=== PATIENT | female | born 1975 | race Caucasian/White ===

== ENCOUNTER → 2016-06-07 | Outpatient (REF) | payer OTHER | LOC: M LAB REF 16:43 | PROVIDERS: ATTEND Obstetrics & Gynecology | DX: N92.1 Excessive and frequent menstruation with irregular cycle (principal) ==

== ENCOUNTER 2016-06-18 09:47 | Day surgery (SDC) | payer OTHER ==
[~2016-06-18] VITALS: Ht 175.3 cm; Wt 104.3 kg
[2016-06-18] VITALS (7 sets, daily range): BP systolic 110–117; BP diastolic 59–72
[~2016-06-18 09:47] MED LIST: PROT1TAB2 PO; SUBO8MIS SL; SUCR1TA PO; ZOFR20TA PO
[2016-06-18] MEDS ORDERED: LR 1,000 ML IV SCH ×3 (10:15→16:30)
[2016-06-18] MEDS ORDERED: ACETAMINOPHEN 650 MG SUPP PR ONE ×2 (10:15→12:55)
[2016-06-18 10:17] LABS: MEAN CORPUSCULAR HEMOGLOBIN 29.7 pg (27.0-33.0); MEAN CORPUSCULAR VOLUME 92.8 fl (80.0-96.0); RED CELL DISTRIBUTION WIDTH 12.7 % (11.5-14.5); WHITE BLOOD COUNT 9.2 K/mm3 (4.0-10.0)
[2016-06-18] MEDS ORDERED: MIDAZOLAM INJ 2 MG/2 ML VIAL (J2250) As Ordered ONE (10:18)
[2016-06-18] MEDS ORDERED: fentaNYL 250 MCG/5 ML INJECTION (J3010) As Ordered ONE (10:19)
[2016-06-18] MEDS ORDERED: LIDOCAINE 2% INJ 100 MG/5 ML SDV (FOR ANES.) As Ordered ONE (10:19)
[2016-06-18] MEDS ORDERED: PROPOFOL 200 MG/20 ML VIAL As Ordered ONE (10:20)
[2016-06-18] MEDS ORDERED: ROCURONIUM BROMIDE 50 MG/5 ML VIAL As Ordered ONE (10:21)
[2016-06-18 10:31] LABS: ANION GAP 7 MEQ/L (8-16); BLOOD UREA NITROGEN 8 MG/DL (7-18); CALCIUM LEVEL 9.3 MG/DL (8.5-10.1); CARBON DIOXIDE LEVEL 31 MEQ/L (21-32); CHLORIDE LEVEL 104 MEQ/L (98-107); CREATININE FOR GFR 0.85 MG/DL (0.55-1.02); GLOMERULAR FILTRATION RATE > 60.0 (>58); GLUCOSE, FASTING 101 MG/DL (70-105); POTASSIUM SERUM 4.1 MEQ/L (3.5-5.1); SODIUM LEVEL 142 MEQ/L (136-145)
[2016-06-18 10:33] LABS: CONTROL LINE HCG INT CTR LINE PRESENT
[2016-06-18] MEDS ORDERED: BUPIVACAINE/EPIN 0.25% 30 ML VIAL As Ordered ONE (10:43)
[2016-06-18] MEDS ORDERED: ACETAMINOPHEN 650 MG SUPP As Ordered ONE (10:43)
[2016-06-18] MEDS ORDERED: VASOPRESSIN INJ 20 UNITS/ML VIAL As Ordered ONE (10:44)
[2016-06-18] MEDS ORDERED: HYDROmorphone HCL 2 MG/ML 1ML VIAL (J1170) As Ordered ONE (11:37)
[2016-06-18] MEDS ORDERED: BUPIVACAINE/EPIN 0.25% 30 ML VIAL XX ONE ×2 (12:14→12:55)
[2016-06-18] MEDS ORDERED: FLUORESCEIN 10% (100MG/ML) 5 ML VIAL As Ordered ONE (12:18)
[2016-06-18] MEDS ORDERED: GLYCOPYRROLATE INJ 0.2 MG/ML 2 ML VIAL As Ordered ONE (12:46)
[2016-06-18] MEDS ORDERED: NEOSTIGMINE 1MG/ML 5 ML SYRINGE (J2710) As Ordered ONE (12:53)
[2016-06-18] MEDS ORDERED: PERCOCET 5MG/325MG TAB As Ordered ONE (13:39)
[2016-06-18] MEDS ORDERED: fentaNYL 100 MCG/2 ML INJECTION (J3010) As Ordered ONE (13:39)
[2016-06-18] MEDS: fentaNYL 100 MCG/2 ML INJECTION (J3010) IV PRN ×4 (13:44→14:19)
[2016-06-18] MEDS: PERCOCET 5MG/325MG TAB PO PRN ×4 (13:45→23:51)
[2016-06-18] MEDS: LR 1,000 ML IV SCH ×2 (14:00→21:49)
[2016-06-18] MEDS ORDERED: ONDANSETRON 4MG/2ML VIAL (J2405) IV PRN ×2 (14:00→16:30)
[2016-06-18] MEDS: HYDROmorphone HCL 1 MG/ML SYRINGE (J1170) IV PRN ×2 (14:41→14:56)
[2016-06-18] MEDS ORDERED: PERCOCET 5MG/325MG TAB PO PRN (16:30)
[2016-06-18] MEDS ORDERED: fentaNYL 100 MCG/2 ML INJECTION (J3010) IV PRN (16:30)
[2016-06-18] MEDS ORDERED: HYDROmorphone HCL 1 MG/ML SYRINGE (J1170) IV PRN (16:30)
[2016-06-18] MEDS: SIMETHICONE 80 MG CHEW TAB PO SCH ×2 (17:22→23:50)
[2016-06-18] MEDS: BUPRENORPHINE/NALOXONE 8-2MG SUBLINGUAL TABLET(SUBOXONE) SL SCH (17:23)
[2016-06-18] MEDS: NICOTINE 7 MG/24 HR TRANSDERMAL TD SCH (17:43)
--- NOTE | 2016-06-18 18:10 | RO ---
DATE OF PROCEDURE: 06/18/2016 Astrid is a 40-year-old female with an extensive history of menometrorrhagia, pelvic pain and history of endometriosis. After extensive counseling in the office a decision was made for total laparoscopic hysterectomy, removal of both tubes and possible lysis of adhesions. PREOPERATIVE DIAGNOSES: 1. Menometrorrhagia. 2. Pelvic pain. 3. History of endometriosis. POSTOPERATIVE DIAGNOSES: 1. Menometrorrhagia. 2. Pelvic pain. 3. History of endometriosis. 4. Small fibroid uterus. OPERATIVE PROCEDURE: 1. Total laparoscopic hysterectomy. 2. Bilateral salpingectomy. 3. Cystoscopy. SURGEON: Matthew Flores MD MANAGER SECURITY AND SAFETY: ANESTHESIA: General. surgeon home health assistant Nini Leger ESTIMATED BLOOD LOSS: 100 mL. COMPLICATIONS: None. FINDINGS: Bilateral tubes appeared to be patent on cystoscopy. No evidence of any bladder injury. The uterus appeared to be normal and the ovaries were within normal limits. DESCRIPTION OF PROCEDURE: After obtaining informed consent, the patient was taken to the operating room where general anesthetic was found be adequate. She was then draped and prepped in the usual sterile fashion in dorsal lithotomy position. At this point, a Rivero catheter was placed in the bladder for drainage. We then placed a weighted speculum in the posterior fornix of the vagina. Using a Shields retractor, the anterior lip of the cervix was then grasped with a single-tooth tenaculum. The uterus was sound to approximately 9 cm in size. The cervix was serially dilated. A uterine manipulator was then placed in. After placing of HUMI II uterine manipulator we then turned our attention to the abdomen where 10 mL infraumbilical incision was made. Using the Veress needle, the abdomen was insufflated with CO2 gas to approximately 3.5 liters. We then placed a 10/12 trocar on the left side and a 5 mm trocar on the right side. The patient was placed in Trendelenburg. The pelvis and abdomen was inspected with the above-noted findings. At this point, the fallopian tube was held in tension and using the GASTON Harmonic scalpel the mesosalpinx was transected all the way down to the utero-ovarian ligament. The utero-ovarian ligament was then cauterized and cut. The round ligament was also cauterized and cut in a similar fashion using the GASTON Harmonic scalpel. I then dissect the anterior leaflet of the broad ligament to create a bladder flap. The uterine arteries were skeletonized and the uterine artery was then cauterized and cut using the GASTON Harmonic scalpel. Attention was turned to the opposite side which was done in similar fashion. The anterior leaflet of the broad ligament was also dissected on that side to complete the anterior bladder flap. The uterine artery also coagulated and cut using the GASTON Harmonic scalpel. At this point, we were able to palpate the uterine manipulator cup and an anterior and posterior colpotomy was then performed. The uterus and bilateral fallopian tube was removed through the vagina. A moistened sponge lap was placed in the vagina to keep pneumoperitoneum. At this point, an Endo suture was inserted with a #2-0 V-Loc suture and the vaginal cuff was closed in a running fashion. Peritoneum over the vaginal cuff also closed. The excess suture was cut away and the device was removed. Pelvis copiously irrigated with normal saline and suctioned out. Furacine was given by the anesthesiologist. The bladder was then retrograde filled with 250 mL of normal saline. Rivero catheter removed. A cystoscope was inserted. Bilateral urethral jets were noted. No evidence of any bladder injury noted. At this point the cystoscope was removed. A Rivero catheter was placed back in the bladder and the laparoscopic ports were closed using #0 Vicryl on the fascia and Dermabond on the skin. 0.25% Marcaine was placed for postoperative pain. The patient tolerated the procedure well. She was then transferred to recovery room in stable condition. ENDY
[2016-06-18] MEDS: IBUPROFEN 800 MG TAB PO SCH (20:30)
[2016-06-19 02:00] VITALS: BP 130/63
[2016-06-19] MEDS: IBUPROFEN 800 MG TAB PO SCH ×2 (02:56→08:41)
[2016-06-19] MEDS: PERCOCET 5MG/325MG TAB PO PRN ×2 (03:53→08:42)
[2016-06-19 06:00] VITALS: BP 121/56
[2016-06-19] MEDS: SIMETHICONE 80 MG CHEW TAB PO SCH (06:00)
[2016-06-19] MEDS: NICOTINE 7 MG/24 HR TRANSDERMAL TD SCH (08:43)
[2016-06-19] MEDS: BUPRENORPHINE/NALOXONE 8-2MG SUBLINGUAL TABLET(SUBOXONE) SL SCH (08:43)
[2016-06-19 10:00] VITALS: BP 118/63
[2016-06-19] MEDS ORDERED: IBUP80TA PO (10:28)
[2016-06-22] MEDS ORDERED: ASPI1TAB PO (14:01)
== END 2016-06-19 12:25 | disposition home or self-care (01) ==
LOC: M SDC 09:47 → M MS5PR 15:40 → M SDC 06-19 12:25
PROVIDERS: ATTEND Obstetrics & Gynecology
DX: N92.1 Excessive and frequent menstruation with irregular cycle (principal); R10.2 Pelvic and perineal pain; D25.9 Leiomyoma of uterus, unspecified; R60.0 Localized edema; R29.898 Other symptoms and signs involving the musculoskeletal system; G89.29 Other chronic pain; M25.561 Pain in right knee; M25.562 Pain in left knee; M25.571 Pain in right ankle and joints of right foot; M25.572 Pain in left ankle and joints of left foot; M25.552 Pain in left hip; M79.641 Pain in right hand; M79.642 Pain in left hand; R06.83 Snoring; L40.9 Psoriasis, unspecified; F41.9 Anxiety disorder, unspecified; F32.9 Major depressive disorder, single episode, unspecified; G47.9 Sleep disorder, unspecified; Z79.899 Other long term (current) drug therapy; Z86.14 Personal history of Methicillin resistant Staphylococcus aureus infection; Z87.42 Personal history of other diseases of the female genital tract; Z87.898 Personal history of other specified conditions; Z91.410 Personal history of adult physical and sexual abuse; Z87.891 Personal history of nicotine dependence
CPT/HCPCS: 36415; 58571; 80048; 84703; 85027; 86850; 86900; 86901; 88309; J0690; J1170; J2250; J2710; J3010

== ENCOUNTER → 2016-11-23 | Outpatient (CLI) | payer OTHER ==
[~2016-11-23] MED LIST changes: +ASPI1TAB PO; +IBUP80TA PO
--- NOTE | 2016-11-23 14:35 | REP ---
Left foot four views: There is no fracture or dislocation. Mineralization and joint spaces are normal. There are no calcifications or foreign bodies. There is a small calcaneal Achilles spur. Impression: Small calcaneal Achilles spur. No fracture. Signed by Naif Larry MD 11/23/2016 02:27 P
== END ==
LOC: M LRY 13:41
PROVIDERS: ATTEND Physician Assistant
DX: S99.922A Unspecified injury of left foot, initial encounter (principal); W18.30XA Fall on same level, unspecified, initial encounter; Y92.009 Unspecified place in unspecified non-institutional (private) residence as the place of occurrence of the external cause

== ENCOUNTER → 2016-12-16 | Outpatient (CLI) | payer OTHER ==
--- NOTE | 2016-12-30 10:11 | REP ---
RIGHT KNEE, FIVE VIEWS: HISTORY: Pain. The examination is available for review at 10 a.m. 12/30/2016. There is no acute fracture or dislocation. There is narrowing of the joint spaces. Osteophytes are present on the femur, tibia and patella. A small suprapatellar joint effusion is present. IMPRESSION: Degenerative change as described above. Signed by Rickey Nguyen MD 12/30/2016 10:35 A
== END ==
LOC: M LRY 09:12
PROVIDERS: ATTEND Physician Assistant
DX: M25.561 Pain in right knee (principal); M25.70 Osteophyte, unspecified joint; M25.461 Effusion, right knee

== ENCOUNTER → 2017-06-24 | Outpatient (CLI) | payer OTHER | LOC: M RAD 14:02 | DX: Z80.42 Family history of malignant neoplasm of prostate (principal) | CPT/HCPCS: 77067 ==

== ENCOUNTER → 2017-07-14 | Outpatient (REF) | payer OTHER | LOC: M SFHCLERA 16:07 | DX: E78.2 Mixed hyperlipidemia (principal); R74.8 Abnormal levels of other serum enzymes; R63.5 Abnormal weight gain; Z53.9 Procedure and treatment not carried out, unspecified reason ==

== ENCOUNTER → 2017-11-13 | Outpatient (REF) | payer OTHER | LOC: M SFHCLERA 12:28 | DX: J00 Acute nasopharyngitis [common cold] (principal) ==

== ENCOUNTER → 2017-12-01 | Outpatient (CLI) | payer OTHER | LOC: M ADAMS 08:44 | DX: G89.29 Other chronic pain (principal); M17.0 Bilateral primary osteoarthritis of knee; M51.36 Other intervertebral disc degeneration, lumbar region | CPT/HCPCS: 72110 ==

== ENCOUNTER 2017-12-25 20:45 | Emergency (ER) | payer OTHER ==
[2017-12-25] MEDS: CLINDAMYCIN 150 MG CAP PO (22:57)
== END 2017-12-25 23:06 | disposition home or self-care (01) ==
LOC: M ED 20:45
DX: L03.115 Cellulitis of right lower limb (principal); J43.9 Emphysema, unspecified; K21.9 Gastro-esophageal reflux disease without esophagitis; K57.90 Diverticulosis of intestine, part unspecified, without perforation or abscess without bleeding; N80.9 Endometriosis, unspecified; D68.9 Coagulation defect, unspecified; F41.9 Anxiety disorder, unspecified; F32.9 Major depressive disorder, single episode, unspecified; M32.9 Systemic lupus erythematosus, unspecified; Z72.0 Tobacco use; Z79.82 Long term (current) use of aspirin; Z79.899 Other long term (current) drug therapy; Z88.2 Allergy status to sulfonamides
CPT/HCPCS: 99283

== ENCOUNTER → 2018-03-15 | Outpatient (REF) | payer OTHER ==
[2018-03-15 13:29] LABS: HEMOGLOBIN 11.7 g/dl (12.0-15.5); MEAN CORPUSCULAR HEMOGLOBIN 32.5 pg (27.0-33.0); MEAN CORPUSCULAR HGB CONC 32.5 g/dl (32.0-36.5); PLATELET COUNT, AUTOMATED 189 10^3/uL (150-450); RED CELL DISTRIBUTION WIDTH 12.8 % (11.5-14.5)
[2018-03-15 13:59] LABS: ADD MANUAL DIFFER YES; DIFF SLIDE NUMBER 168; POSITIVE MORPH POS FLAG
[2018-03-15 14:02] LABS: ALBUMIN 3.4 GM/DL (3.2-5.2); ALBUMIN/GLOBULIN RATIO 0.94 (1.00-1.93); ALKALINE PHOSPHATASE 152 U/L (45-117); ALT/SGPT 63 U/L (12-78); ANION GAP 8 MEQ/L (8-16); AST/SGOT 21 U/L (7-37); BILIRUBIN,TOTAL 0.2 MG/DL (0.2-1.0); BLOOD UREA NITROGEN 9 MG/DL (7-18); CALCIUM LEVEL 8.6 MG/DL (8.5-10.1); CARBON DIOXIDE LEVEL 29 MEQ/L (21-32); CHLORIDE LEVEL 101 MEQ/L (98-107); CREATININE FOR GFR 0.79 MG/DL (0.55-1.30); ESTIMATED AVERAGE GLUCOSE 108 MG/DL (60-110); FREE T4 0.91 NG/DL (0.76-1.46); GLOMERULAR FILTRATION RATE > 60.0 (>58); GLUCOSE, FASTING 91 MG/DL (70-100); HEMOGLOBIN A1c 5.4 %; POTASSIUM SERUM 4.3 MEQ/L (3.5-5.1); SODIUM LEVEL 138 MEQ/L (136-145); TOTAL 25(OH) VITAMIN D 23.7 NG/ML (30.0-100.0); VITAMIN B12 LEVEL 649 PG/ML (247-911)
[2018-03-15 14:07] LABS: BANDS 1 % (< 11); EOSINOPHILS 4 % (0-5); LYMPHOCYTES 45 % (16-52); METAMYELOCYTES 3 % (0-0); MONOCYTES 2 % (0-8); MYELOCYTES 2 % (0-0); NEUTROPHILS 43 % (35-75); PLATELET ESTIMATE NORMAL (NORMAL)
== END ==
LOC: M SFHCPLAZ 09:48
DX: R53.83 Other fatigue (principal)

== ENCOUNTER 2018-07-03 01:00 | Emergency (ER) | payer OTHER ==
[~2018-07-03] VITALS: Ht 175.3 cm; Wt 126.4 kg
[~2018-07-03 01:00] MED LIST changes: +CELE1CAP9; +CLEO300C2 PO; +GABA-843; +HUMI40KI2 SC; +METH2.5T48 PO; +TIZA4CAP; -ZOFR20TA PO; +ZOFR4TAB16 PO
[2018-07-03] MEDS ORDERED: BACL1TAB8 PO (01:27)
[2018-07-03] MEDS ORDERED: FOLI1TAB11 PO (01:28)
[2018-07-03] MEDS ORDERED: ACETAMINOPHEN 325 MG TAB PO ONE (01:45)
[2018-07-03] MEDS ORDERED: KETOROLAC 30 MG/ML VIAL (J1885) IV ONE (01:45)
[2018-07-03] MEDS ORDERED: METHOCARBAMOL 1,000 MG/10 ML VIAL (J2800) IV ONE (01:45)
--- NOTE | 2018-07-03 02:20 | REPVR ---
EXAM: CT Lumbar Spine Without Contrast EXAM DATE/TIME: 07/03/2018 1:57 AM CLINICAL HISTORY: 42 years old, female; Injury or trauma; Fall; Initial encounter; Blunt trauma (contusions or hematomas); Additional info: Decr. Hip flexion, recent fall onto low back TECHNIQUE: Axial computed tomography images of the lumbar spine without intravenous contrast. All CT scans at this facility use at least one of these dose optimization techniques: automated exposure control; mA and/or kV adjustment per patient size (includes targeted exams where dose is matched to clinical indication); or iterative reconstruction. Coronal and sagittal reformatted images were created and reviewed. COMPARISON: DX SPINE LS COMPLETE 12/01/2017 8:48 AM FINDINGS: Vertebrae: No acute fracture. Normal alignment. Discs/Spinal canal/Neural foramina: Degenerative interspace narrowing and vacuum phenomenon at L5-S1 with mild anterior and posterior spurring and mild facet arthropathy. No spinal stenosis. There is slight narrowing of the right lateral recess and mild left and moderate right neural foraminal stenosis. Moderate facet arthropathy at L4-L5 with no significant spinal or foraminal stenosis. Soft tissues: Unremarkable. Gallbladder and bile ducts: Status post cholecystectomy. IMPRESSION: 1. Degenerative changes L5-S1 with mild left and moderate right neural foraminal stenosis. There is also some facet arthropathy at L4-L5 with no spinal stenosis 2. Otherwise negative CT lumbar spine. No acute fracture or subluxation. Electronically signed by: Irvin Salas On 07/03/2018 02:19:49 AM
--- NOTE | 2018-07-03 02:52 | REPVR ---
EXAM: US Duplex Right Lower Extremity Veins, Limited EXAM DATE/TIME: 07/03/2018 2:42 AM CLINICAL HISTORY: 42 years old, female; Pain; Leg, upper; Right; Additional info: Sudden onset pain/weakness, antiphospholipid ab syndrome TECHNIQUE: Real-time Duplex ultrasound of the Right Lower Extremity with 2-D casarez scale, color Doppler flow and spectral waveform analysis. Limited exam was focused on the right lower extremity veins. COMPARISON: No relevant prior studies available. FINDINGS: Right deep veins: Unremarkable. The common femoral, femoral, proximal profunda femoral and popliteal veins are patent without thrombus. Normal Doppler waveforms. Normal compressibility and/or augmentation response. Right superficial veins: Unremarkable. Saphenofemoral junction is patent without thrombus. Soft tissues: Unremarkable. IMPRESSION: Negative right lower extremity venous duplex exam without evidence of deep venous thrombosis. Electronically signed by: Irvin Salas On 07/03/2018 02:52:29 AM
[2018-07-03 03:31] VITALS: BP 87/50
--- NOTE | 2018-07-03 08:06 | REP ---
Clinical: Nontraumatic hip pain with decreased range of motion . Technique: Frontal view of the pelvis with neutral and frog lateral views of the right hip. Findings: Osseous structures and joint spaces are intact and normal. Hip joints appear symmetric on frontal pelvic radiograph. No acute fracture dislocation. No evidence for healed injury. No significant degenerative or congenital abnormalities are appreciated. Surrounding soft tissues are unremarkable. Impression: Normal pelvis and right hip series. Electronically Signed by Sonny Kidd MD 07/03/2018 07:58 A
== END 2018-07-03 03:40 | disposition home or self-care (01) ==
LOC: M ED 01:00
DX: T21.15XA Burn of first degree of buttock, initial encounter (principal); T31.0 Burns involving less than 10% of body surface; S39.012A Strain of muscle, fascia and tendon of lower back, initial encounter; S76.011A Strain of muscle, fascia and tendon of right hip, initial encounter; W01.198A Fall on same level from slipping, tripping and stumbling with subsequent striking against other object, initial encounter; X16.XXXA Contact with hot heating appliances, radiators and pipes, initial encounter; Y92.098 Other place in other non-institutional residence as the place of occurrence of the external cause; M32.9 Systemic lupus erythematosus, unspecified; K21.9 Gastro-esophageal reflux disease without esophagitis; D68.61 Antiphospholipid syndrome; F17.200 Nicotine dependence, unspecified, uncomplicated; Z88.2 Allergy status to sulfonamides; Z79.899 Other long term (current) drug therapy; Z79.82 Long term (current) use of aspirin
CPT/HCPCS: 36415; 72131; 73502; 93971; 96374; 96375; 99284; J1885; J2800

== ENCOUNTER → 2018-07-06 | Outpatient (RCR) | payer OTHER ==
[~2018-07-06] MED LIST changes: +BACL1TAB8 PO; +FOLI1TAB11 PO
== END | disposition home or self-care (01) ==
LOC: M PT 12:17
PROVIDERS: ATTEND Nurse Practitioner Family
DX: M54.40 Lumbago with sciatica, unspecified side (principal)

== ENCOUNTER → 2018-07-19 | Outpatient (REF) | payer OTHER ==
[2018-07-19 13:02] LABS: ALBUMIN 3.9 GM/DL (3.2-5.2); ALT/SGPT 36 U/L (12-78); BILIRUBIN,TOTAL 0.2 MG/DL (0.2-1.0); BLOOD UREA NITROGEN 10 MG/DL (7-18); CALCIUM LEVEL 8.9 MG/DL (8.5-10.1); CARBON DIOXIDE LEVEL 27 MEQ/L (21-32); CHLORIDE LEVEL 103 MEQ/L (98-107); CHOLESTEROL LEVEL 195 MG/DL (<200); CHOLESTEROL RISK RATIO 5.131 (<5); CREATININE FOR GFR 0.79 MG/DL (0.55-1.30); GLOMERULAR FILTRATION RATE > 60.0 (>58); GLUCOSE, FASTING 121 MG/DL (70-100); HDL CHOLESTEROL 38 MG/DL (>40); LDL CHOLESTEROL 120 MG/DL (<100); NON-HDL-C 157 MG/DL; POTASSIUM SERUM 4.1 MEQ/L (3.5-5.1); SODIUM LEVEL 138 MEQ/L (136-145); TOTAL PROTEIN 7.8 GM/DL (6.4-8.2); TRIGLYCERIDES LEVEL 186 MG/DL (<150)
== END ==
LOC: M SFHCPLAZ 08:03
PROVIDERS: ATTEND Nurse Practitioner Family
DX: E78.2 Mixed hyperlipidemia (principal)

== ENCOUNTER 2018-08-01 15:15 | Outpatient (RCR) | payer OTHER | END 2018-08-06 | LOC: M PT 15:15 | PROVIDERS: ATTEND Nurse Practitioner Family | DX: M54.40 Lumbago with sciatica, unspecified side (principal) ==

== ENCOUNTER → 2018-10-19 | Outpatient (CLI) | payer MEDICAID ==
[~2018-10-19] MED LIST changes: -ASPI1TAB PO; +ASPI81TA26 PO
== END ==
LOC: M OUTALCOH 07:51
PROVIDERS: ATTEND Psychiatry & Neurology Psychiatry
DX: Z13.9 Encounter for screening, unspecified (principal); F11.20 Opioid dependence, uncomplicated

== ENCOUNTER 2018-11-02 09:00 | Outpatient (RCR) | payer MEDICAID | END 2018-11-05 | LOC: M OUTALCOH 09:00 | PROVIDERS: ATTEND Psychiatry & Neurology Psychiatry | DX: F11.20 Opioid dependence, uncomplicated (principal); F13.20 Sedative, hypnotic or anxiolytic dependence, uncomplicated; F17.200 Nicotine dependence, unspecified, uncomplicated ==

== ENCOUNTER → 2018-11-15 | Outpatient (CLI) | payer OTHER, SELFPAY ==
[2018-11-15 13:01] LABS: ALBUMIN 3.6 GM/DL (3.2-5.2); ALT/SGPT 37 U/L (12-78); BILIRUBIN,TOTAL 0.2 MG/DL (0.2-1.0); BLOOD UREA NITROGEN 8 MG/DL (7-18); CALCIUM LEVEL 9.4 MG/DL (8.5-10.1); CARBON DIOXIDE LEVEL 28 MEQ/L (21-32); CHLORIDE LEVEL 106 MEQ/L (98-107); CHOLESTEROL LEVEL 169 MG/DL (<200); CHOLESTEROL RISK RATIO 3.595 (<5); CREATININE FOR GFR 0.88 MG/DL (0.55-1.30); GLOMERULAR FILTRATION RATE > 60.0 (>58); GLUCOSE, FASTING 108 MG/DL (70-100); HDL CHOLESTEROL 47 MG/DL (>40); LDL CHOLESTEROL 102 MG/DL (<100); NON-HDL-C 122 MG/DL; POTASSIUM SERUM 4.1 MEQ/L (3.5-5.1); SODIUM LEVEL 140 MEQ/L (136-145); TOTAL PROTEIN 7.5 GM/DL (6.4-8.2); TRIGLYCERIDES LEVEL 101 MG/DL (<150)
[2018-11-15 13:18] LABS: HEMOGLOBIN A1c 6.1 %
== END ==
LOC: M LAB 12:09
PROVIDERS: ATTEND Nurse Practitioner Family
DX: R73.01 Impaired fasting glucose (principal); E78.2 Mixed hyperlipidemia

== ENCOUNTER → 2018-12-06 | Outpatient (RCR) | payer MEDICAID, SELFPAY | LOC: M OUTALCOH 11-06 11:21 | PROVIDERS: ATTEND Psychiatry & Neurology Psychiatry | DX: F11.20 Opioid dependence, uncomplicated (principal); F13.20 Sedative, hypnotic or anxiolytic dependence, uncomplicated; F17.200 Nicotine dependence, unspecified, uncomplicated ==

== ENCOUNTER 2018-12-12 11:12 | Outpatient (RCR) | payer SELFPAY | END 2019-01-06 | LOC: M OUTALCOH 11:12 | PROVIDERS: ATTEND Psychiatry & Neurology Psychiatry | DX: F11.20 Opioid dependence, uncomplicated (principal); F13.20 Sedative, hypnotic or anxiolytic dependence, uncomplicated; F17.200 Nicotine dependence, unspecified, uncomplicated ==

== ENCOUNTER → 2019-03-22 | Outpatient (CLI) | payer MEDICAID ==
--- NOTE | 2019-03-22 17:20 | REP ---
Five views right knee: 03/22/2019. Indication: Knee pain following injury. Comparison: 12/01/2017 and 12/16/2016. Findings: There is no acute fracture, subluxation or dislocation. Tricompartmental osteoarthritic sequelae are redemonstrated. No lytic or blastic lesions of the visualized bones are present. Impression: No acute fracture. Electronically Signed by Kg Dutton DO 03/22/2019 05:12 P
== END ==
LOC: M RAD 16:26
PROVIDERS: ATTEND Physician Assistant
DX: S89.91XA Unspecified injury of right lower leg, initial encounter (principal); X58.XXXA Exposure to other specified factors, initial encounter; Y92.9 Unspecified place or not applicable

== ENCOUNTER 2019-03-29 10:44 | Emergency (ER) | payer MEDICAID, OTHER ==
[~2019-03-29] VITALS: Ht 175.3 cm; Wt 117.3 kg
[~2019-03-29 10:44] MED LIST changes: -PRED20TA PO
[2019-03-29 11:17] LABS: BASO % 0.2 % (0.0-1.0); EOS # 0.2 10^3/uL (0.0-0.5); EOS % 2.1 % (0.0-3.0); HEMATOCRIT 43.2 % (36.0-47.0); HEMOGLOBIN 13.7 g/dl (12.0-15.5); LYMPH # 1.6 10^3/uL (1.5-5.0); LYMPH % 15.1 % (24.0-44.0); MEAN CORPUSCULAR HEMOGLOBIN 31.6 pg (27.0-33.0); MEAN CORPUSCULAR HGB CONC 31.7 g/dl (32.0-36.5); MEAN CORPUSCULAR VOLUME 99.8 fl (80.0-96.0); MONO # 0.7 10^3/uL (0.0-0.8); MONO % 6.6 % (0.0-5.0); NEUTROPHILS # 8.1 10^3/uL (1.5-8.5); NEUTROPHILS % 75.5 % (36.0-66.0); PLATELET COUNT, AUTOMATED 218 10^3/uL (150-450); RED BLOOD COUNT 4.33 10^6/uL (4.00-5.40); WHITE BLOOD COUNT 10.8 10^3/uL (4.0-10.0)
--- NOTE | 2019-03-29 11:42 | REP ---
PORTABLE CHEST X-RAY: Single view. HISTORY: Chest pain. FINDINGS: EKG monitoring electrodes overlie the chest. Lungs are well inflated and free of infiltrate. Heart is not enlarged. Pulmonary vasculature is not increased. No significant bony abnormality. IMPRESSION: No active disease. Electronically Signed by Eleuterio Soto MD 03/29/2019 01:12 P
[2019-03-29 11:44] LABS: BLOOD UREA NITROGEN 9 MG/DL (7-18); CALCIUM LEVEL 9.1 MG/DL (8.5-10.1); CARBON DIOXIDE LEVEL 28 MEQ/L (21-32); CHLORIDE LEVEL 105 MEQ/L (98-107); CK-MB VALUE MASS 2.6 NG/ML (<3.6); CPK CREATINE PHOSPHOKINASE 111 U/L (26-192); CREATININE FOR GFR 0.74 MG/DL (0.55-1.30); GLOMERULAR FILTRATION RATE > 60.0 (>58); GLUCOSE, FASTING 106 MG/DL (70-100); MB/CK RELATIVE INDEX 2.34 (< OR =4); POTASSIUM SERUM 4.2 MEQ/L (3.5-5.1); SODIUM LEVEL 138 MEQ/L (136-145); TROPONIN I < 0.02 NG/ML (< 0.10)
[2019-03-29 12:06] LABS: ALBUMIN 3.6 GM/DL (3.2-5.2); ALT/SGPT 30 U/L (12-78); BILIRUBIN,DIRECT < 0.1 MG/DL (0.0-0.2); BILIRUBIN,TOTAL 0.4 MG/DL (0.2-1.0); LIPASE 88 U/L (73-393); TOTAL PROTEIN 7.7 GM/DL (6.4-8.2)
--- NOTE | 2019-03-29 12:19 | REP ---
Duplex extremity venous ultrasound: Right lower extremity History: Pain. Chest pain. Rule out DVT. Findings: The deep veins are anechoic and fully compressible from the groin to the popliteal fossa in the right lower extremity. Color flow imaging is homogeneous. Spectral Doppler interrogation demonstrates intact respiratory variation in flow and normal manual augmentation of flow. There is no evidence of deep vein thrombosis. Impression: Negative right lower extremity duplex venous ultrasound. No evidence of deep vein thrombosis. Electronically Signed by Eleuterio Soto MD 03/29/2019 12:10 P
[2019-03-29] MEDS ORDERED: ISOVUE-370 76% 100ML VIAL (Q9967) As Ordered ONE (12:30)
--- NOTE | 2019-03-29 13:20 | REP ---
CT ANGIOGRAM CHEST: TECHNIQUE: Axial contrast enhanced images from the thoracic inlet to the upper abdomen using 100 mL Isovue 370 intravenous contrast material with multiplanar reformations. There is no CT evidence of pulmonary embolism. There is no thoracic aortic aneurysm or dissection. Heart is not enlarged. There is no mediastinal, hilar, or chest wall lymphadenopathy. There is no pleural or pericardial effusion. Calcified granulomas seen in the right lower lobe. No infiltrate is seen in either lung. There are degenerative changes of the spine. IMPRESSION: No CT evidence of pulmonary embolism or aortic dissection. Calcified granuloma right lower lobe. Electronically Signed by Naif Pedroza MD 03/29/2019 02:17 P
[2019-03-29] MEDS ORDERED: PRED20TA PO (14:05)
[2019-03-29] MEDS ORDERED: dexameTHASONE 20 MG/5 ML VIAL (J1100) IV ONE (14:15)
[2019-03-29 14:30] VITALS: BP 102/51
--- NOTE | 2019-03-30 13:01 | ECGEPIP ---
[facility] - ED Test Date: 2019-03-29 Pat Name: RITA CERVANTES Department: Room: - Gender: Female Securities Underwriter: mary carmen khalil : 1975 Requested By: ANAMIKA Bullock Order Number: [id number] Reading MD: Taylor Toure Measurements Intervals [place] Rate: 79 P: 21 MA: 158 QRS: 9 QRSD: 94 T: 11 QT: 370 QTc: 425 Interpretive Statements SINUS RHYTHM LOW QRS VOLTAGE IN PRECORDIAL LEADS DELAYED R PROGRESSION NO PRIOR Electronically Signed on 03-30-2019 13:01:20 EST by Taylor Toure
== END 2019-03-29 14:39 | disposition home or self-care (01) ==
LOC: M ED 10:44
DX: R07.89 Other chest pain (principal); R06.02 Shortness of breath; J44.9 Chronic obstructive pulmonary disease, unspecified; K21.9 Gastro-esophageal reflux disease without esophagitis; M32.9 Systemic lupus erythematosus, unspecified; F17.200 Nicotine dependence, unspecified, uncomplicated; Z88.2 Allergy status to sulfonamides
CPT/HCPCS: 71045; 71275; 80048; 80076; 82550; 82553; 83690; 85025; 93005; 93041; 93971; 94760; 96374; 99285; J1100; Q9967

== ENCOUNTER → 2019-03-29 | Outpatient (REF) | payer MEDICAID ==
[~2019-03-29] MED LIST changes: +PRED20TA PO
[2019-03-29 12:21] LABS: CRYSTALS, BODY FLUID CA PYROPHOSPHATE (NONE SEEN); SOURCE, BODY FLUID CRYSTALS RT KNEE
[2019-03-29 12:42] LABS: SOURCE, BODY FLUID RT KNEE; SYNOVIAL FLUID COLOR YELLOW (YELLOW)
[2019-03-29 13:40] LABS: MUCIN CLOT TEST 4+ (4+)
[2019-03-29 13:48] LABS: SOURCE, BODY FLUID GLUCOSE RT KNEE; SOURCE, BODY FLUID URIC ACID RT KNEE; URIC ACID, BODY FLUID 3.7 MG/DL (NOT ESTABLISHED)
[2019-03-29 13:53] LABS: BODY FLUID RHEUMATOID SCREEN NEGATIVE (NEGATIVE)
== END ==
LOC: M LAB REF 11:52
PROVIDERS: ATTEND Orthopaedic Surgery Hand Surgery
DX: M25.561 Pain in right knee (principal)

== ENCOUNTER → 2019-05-30 | Outpatient (REF) | payer OTHER ==
[~2019-05-30] MED LIST changes: +PRED20TA PO
[2019-05-30 11:08] LABS: ALBUMIN 3.6 GM/DL (3.2-5.2); ALT/SGPT 31 U/L (12-78); BILIRUBIN,TOTAL 0.2 MG/DL (0.2-1.0); BLOOD UREA NITROGEN 11 MG/DL (7-18); CARBON DIOXIDE LEVEL 29 MEQ/L (21-32); CHLORIDE LEVEL 105 MEQ/L (98-107); CREATININE FOR GFR 0.87 MG/DL (0.55-1.30); GLOMERULAR FILTRATION RATE > 60.0 (>58); GLUCOSE, FASTING 123 MG/DL (70-100); POTASSIUM SERUM 4.2 MEQ/L (3.5-5.1); SODIUM LEVEL 139 MEQ/L (136-145); TOTAL PROTEIN 7.6 GM/DL (6.4-8.2)
== END ==
LOC: M SFHCPLAZ 08:49
PROVIDERS: ATTEND Nurse Practitioner Family
DX: R73.03 Prediabetes (principal); K21.9 Gastro-esophageal reflux disease without esophagitis

== ENCOUNTER → 2019-06-07 | Outpatient (REF) | payer OTHER ==
[2019-06-07 13:10] LABS: HEMOGLOBIN 13.1 g/dl (12.0-15.5); MEAN CORPUSCULAR HEMOGLOBIN 31.1 pg (27.0-33.0); MEAN CORPUSCULAR HGB CONC 30.5 g/dl (32.0-36.5); MEAN CORPUSCULAR VOLUME 102.1 fl (80.0-96.0); PLATELET COUNT, AUTOMATED 270 10^3/uL (150-450); RED BLOOD COUNT 4.21 10^6/uL (4.00-5.40); WHITE BLOOD COUNT 9.2 10^3/uL (4.0-10.0)
[2019-06-07 13:12] LABS: ALBUMIN 4.3 GM/DL (3.2-5.2); ALT/SGPT 34 U/L (12-78); BILIRUBIN,TOTAL 0.3 MG/DL (0.2-1.0); BLOOD UREA NITROGEN 10 MG/DL (7-18); C REACTIVE PROTEIN QUANTITATIV 1.12 MG/DL (0.00-0.30); CALCIUM LEVEL 9.3 MG/DL (8.5-10.1); CARBON DIOXIDE LEVEL 28 MEQ/L (21-32); CHLORIDE LEVEL 103 MEQ/L (98-107); COMPLEMENT C3 157 MG/DL (90-180); COMPLEMENT C4 26 MG/DL (10-40); CREATININE FOR GFR 0.91 MG/DL (0.55-1.30); GLOMERULAR FILTRATION RATE > 60.0 (>58); GLUCOSE, FASTING 96 MG/DL (70-100); POTASSIUM SERUM 3.8 MEQ/L (3.5-5.1); SODIUM LEVEL 137 MEQ/L (136-145); TOTAL PROTEIN 8.5 GM/DL (6.4-8.2)
[2019-06-07 13:51] LABS: APPEARANCE, URINE HAZY (CLEAR); BACTERIA, URINE AUTO 1+ (NEGATIVE); BILIRUBIN, URINE AUTO NEGATIVE (NEGATIVE); BLOOD, URINE BLOOD 1+ (NEGATIVE); COLOR, URINE YELLOW (YELLOW); GLUCOSE, URINE (UA) AUTO NEGATIVE (NEGATIVE); KETONE, URINE AUTO NEGATIVE (NEGATIVE); LEUKOCYTE ESTERASE, URINE AUTO NEGATIVE (NEGATIVE); MUCUS, URINE SMALL (NEGATIVE); NITRITE, URINE AUTO NEGATIVE (NEGATIVE); PROTEIN, URINE AUTO NEGATIVE (NEGATIVE); RBC, URINE AUTO 5 /HPF (0-3); SPECIFIC GRAVITY URINE AUTO 1.015 (1.002-1.035); SQUAMOUS EPITHELIAL CELL UR AU 4 /HPF (0-6); UROBILINOGEN, URINE AUTO 0.2 mg/dL (0.0-2.0); WBC, URINE AUTO 1 /HPF (0-3)
[2019-06-07 13:57] LABS: EOSINOPHILS 6 % (0-3); LYMPHOCYTES 24 % (16-44); MONOCYTES 11 % (0-5); NEUTROPHILS 59 % (28-66); PLATELET ESTIMATE NORMAL (NORMAL)
[2019-06-07 14:14] LABS: ERYTHROCYTE SEDIMENTATION RATE 61 mm/hr (0-20)
[2019-06-08 10:56] LABS: HEPATITIS B SURFACE ANTIGEN NEGATIVE (NEGATIVE)
[2019-06-08 11:24] LABS: HEPATITIS C VIRUS ABY INDEX < 0.0 INDEX (<0.8)
[2019-06-11 14:09] LABS: ANA (HEP2) Negative (.); ANTI DS-DNA AB Negative (Negative); BETA-2 GLYCOPROTEIN I ABY IGA <9 (0-25); BETA-2 GLYCOPROTEIN I ABY IGG <9 (0-20); BETA-2 GLYCOPROTEIN I ABY IGM 147 (0-32); CARDIOLIPIN IGA ANTIBODY <9 APL U/mL (0-11); CARDIOLIPIN IGG ANTIBODY <9 GPL U/mL (0-14); CARDIOLIPIN IGM ANTIBODY 142 MPL U/mL (0-12); HEPATITIS B CORE ANTIBODY IGG Negative (Negative); RNP ANTIBODY < 0.2 AI (0.0-0.9); SMITHS ANTIBODY < 0.2 AI (0.0-0.9); SSA SJOGRENS A <0.2 AI (0.0-0.9); SSB SJOGRENS B <0.2 AI (0.0-0.9)
[2019-06-12 11:29] LABS: DRVV SCREEN 51.4 SEC
[2019-06-12 11:33] LABS: PTT LUPUS TYPE ANTICOAG SCREEN 1.3 (0-1.2)
[2019-06-12 11:42] LABS: DRVV CONFIRM 36.2 SEC
[2019-06-12 11:45] LABS: NORMALIZED RATIO 1.3 (0.00-1.20)
== END ==
LOC: M SFHCRHEU 09:44
PROVIDERS: ATTEND Internal Medicine
DX: R76.0 Raised antibody titer (principal); M32.9 Systemic lupus erythematosus, unspecified; L40.50 Arthropathic psoriasis, unspecified

== ENCOUNTER → 2019-08-09 | Outpatient (CLI) | payer OTHER ==
[2019-08-09 10:27] LABS: HEMATOCRIT 42.4 % (36.0-47.0); HEMOGLOBIN 13.9 g/dl (12.0-15.5); MEAN CORPUSCULAR HEMOGLOBIN 32.4 pg (27.0-33.0); MEAN CORPUSCULAR HGB CONC 32.8 g/dl (32.0-36.5); MEAN CORPUSCULAR VOLUME 98.8 fl (80.0-96.0); PLATELET COUNT, AUTOMATED 254 10^3/uL (150-450); RED BLOOD COUNT 4.29 10^6/uL (4.00-5.40); WHITE BLOOD COUNT 7.9 10^3/uL (4.0-10.0)
[2019-08-09 10:56] LABS: ATYPICAL LYMPH 8 % (0-5); LYMPHOCYTES 24 % (16-44); MONOCYTES 5 % (0-5); NEUTROPHILS 63 % (28-66); PLATELET ESTIMATE NORMAL (NORMAL)
[2019-08-09 11:01] LABS: ERYTHROCYTE SEDIMENTATION RATE 46 mm/hr (0-20)
[2019-08-09 11:08] LABS: ALBUMIN 3.5 GM/DL (3.2-5.2); ALT/SGPT 47 U/L (12-78); BILIRUBIN,TOTAL 0.3 MG/DL (0.2-1.0); BLOOD UREA NITROGEN 9 MG/DL (7-18); C REACTIVE PROTEIN QUANTITATIV 0.64 MG/DL (0.00-0.30); CALCIUM LEVEL 8.4 MG/DL (8.5-10.1); CARBON DIOXIDE LEVEL 25 MEQ/L (21-32); CHLORIDE LEVEL 107 MEQ/L (98-107); CREATININE FOR GFR 0.81 MG/DL (0.55-1.30); GLOMERULAR FILTRATION RATE > 60.0 (>58); GLUCOSE, FASTING 161 MG/DL (70-100); POTASSIUM SERUM 4.3 MEQ/L (3.5-5.1); SODIUM LEVEL 135 MEQ/L (136-145); TOTAL PROTEIN 7.5 GM/DL (6.4-8.2)
--- NOTE | 2019-08-09 16:36 | REPPI ---
AP PELVIS: SINGLE VIEW. HISTORY: Osteoarthritis. Psoriatic arthritis. FINDINGS: AP view of the pelvis shows an intact bony pelvic ring. Sacroiliac joints and symphysis pubis are intact. Hip joint size spaces are preserved. Femoral heads are smooth and rounded. The visualized bowel gas pattern is unremarkable. IMPRESSION: Negative AP view of the pelvis. Electronically Signed by Eleuterio Soto MD 08/09/2019 05:41 P
--- NOTE | 2019-08-09 16:36 | REPPI ---
LUMBAR SPINE SERIES: FIVE VIEWS. HISTORY: Psoriatic arthritis. FINDINGS: Lumbar vertebral body heights are preserved. There is no evidence of spondylolysis. There is degenerative disc narrowing at L4-5. No spondylolisthesis is seen. Degenerative disc narrowing is more pronounced at L5-S1. There is facet narrowing and sclerosis bilaterally at 4-5 and 5-1. Some hypertrophy is noted L4-5 facets bilaterally. Psoas margins are symmetric. Sacrum and SI joints are intact. There are surgical clips in the right upper quadrant consistent prior cholecystectomy. IMPRESSION: Degenerative disc and osteoarthritic facet disease at L5-S1 and L4-5. SI joints are radiographically unremarkable. Electronically Signed by Eleuterio Soto MD 08/09/2019 05:41 P
== END ==
LOC: M PLAIMG 08:19
PROVIDERS: ATTEND Internal Medicine
DX: L40.50 Arthropathic psoriasis, unspecified (principal); M15.0 Primary generalized (osteo)arthritis; M51.37 Other intervertebral disc degeneration, lumbosacral region

== ENCOUNTER → 2019-11-14 | Outpatient (CLI) | payer MEDICAID, OTHER ==
[~2019-11-14] MED LIST changes: +ASPI81TA86 PO; +HUMI40IN2; +INDO50CA91 PO; +LORA-674; +METH2.5T48; +MOTRIN; +ONDA4TAB6; +PROTPAK PO; +SUCR1TAB56
[2019-11-14 07:03] LABS: HEMATOCRIT 39.8 % (36.0-47.0); MEAN CORPUSCULAR HEMOGLOBIN 33.2 pg (27.0-33.0); MEAN CORPUSCULAR HGB CONC 32.7 g/dl (32.0-36.5); MEAN CORPUSCULAR VOLUME 101.5 fl (80.0-96.0); PLATELET COUNT, AUTOMATED 218 10^3/uL (150-450); RED BLOOD COUNT 3.92 10^6/uL (4.00-5.40); WHITE BLOOD COUNT 8.9 10^3/uL (4.0-10.0)
[2019-11-14 07:28] LABS: ALBUMIN 3.2 GM/DL (3.2-5.2); ALT/SGPT 33 U/L (12-78); BILIRUBIN,TOTAL 0.2 MG/DL (0.2-1.0); BLOOD UREA NITROGEN 9 MG/DL (7-18); C REACTIVE PROTEIN QUANTITATIV 0.72 MG/DL (0.00-0.30); CALCIUM LEVEL 8.7 MG/DL (8.5-10.1); CARBON DIOXIDE LEVEL 26 MEQ/L (21-32); CHLORIDE LEVEL 110 MEQ/L (98-107); CREATININE FOR GFR 1.04 MG/DL (0.55-1.30); GLOMERULAR FILTRATION RATE > 60.0 (>58); GLUCOSE, FASTING 142 MG/DL (70-100); SODIUM LEVEL 140 MEQ/L (136-145); TOTAL PROTEIN 7.1 GM/DL (6.4-8.2)
[2019-11-14 08:38] LABS: ERYTHROCYTE SEDIMENTATION RATE 45 mm/hr (0-20)
[2019-11-14 08:46] LABS: ATYPICAL LYMPH 3 % (0-5); EOSINOPHILS 5 % (0-3); LYMPHOCYTES 31 % (16-44); MONOCYTES 6 % (0-5); NEUTROPHILS 55 % (28-66)
[2019-11-14 08:47] LABS: ANISOCYTOSIS 1+; PLATELET ESTIMATE NORMAL (NORMAL)
== END ==
LOC: M LAB 06:30
PROVIDERS: ATTEND Internal Medicine
DX: L40.50 Arthropathic psoriasis, unspecified (principal)

== ENCOUNTER 2019-11-26 17:30 | Emergency (ER) | payer MEDICAID, OTHER ==
[~2019-11-26] VITALS: Ht 175.3 cm; Wt 125.5 kg
[~2019-11-26 17:30] MED LIST changes: -ASPI81TA86 PO; -HUMI40IN2; -INDO50CA91 PO; -LORA-674; -METH2.5T48; -MOTRIN; -ONDA4TAB6; -PROTPAK PO; -SUCR1TAB56
[2019-11-26] MEDS ORDERED: SUCR1TAB56 (17:42)
[2019-11-26] MEDS ORDERED: ONDA4TAB6 (17:42)
[2019-11-26] MEDS ORDERED: MOTRIN (17:42)
[2019-11-26] MEDS ORDERED: HUMI40IN2 (17:42)
[2019-11-26] MEDS ORDERED: METH2.5T48 (17:42)
[2019-11-26] MEDS ORDERED: LORA-674 (17:43)
[2019-11-26] MEDS ORDERED: INDO50CA91 PO (19:04)
[2019-11-26 19:10] VITALS: BP 113/72
--- NOTE | 2019-11-27 08:10 | REP ---
RIGHT KNEE SERIES: Four views. HISTORY: Right knee pain. Comparison right knee radiographs are from March 22, 2019. FINDINGS: There is three compartment osteoarthritis with osteophyte formation most pronounced in the medial compartment. There is some joint space narrowing medially as well. Findings are unchanged radiographically. A small subcortical cyst is seen beneath the tibial spines also unchanged. No fracture or subluxation is seen. On the lateral radiograph, there is evidence of a joint effusion. No sunrise view is included today. IMPRESSION: Evidence of moderate joint effusion. Three compartment osteoarthritis. No acute bony abnormality. Electronically Signed by Eleuterio Soto MD 11/27/2019 08:35 A
== END 2019-11-26 19:14 | disposition home or self-care (01) ==
LOC: M ED 17:30
DX: S83.411A Sprain of medial collateral ligament of right knee, initial encounter (principal); M25.461 Effusion, right knee; X50.9XXA Other and unspecified overexertion or strenuous movements or postures, initial encounter; Y92.9 Unspecified place or not applicable; Y93.9 Activity, unspecified; Y99.9 Unspecified external cause status; F17.200 Nicotine dependence, unspecified, uncomplicated; Z79.899 Other long term (current) drug therapy; Z88.1 Allergy status to other antibiotic agents

== ENCOUNTER → 2019-12-11 | Outpatient (REF) | payer OTHER ==
[~2019-12-11] MED LIST changes: +ASPI81TA86 PO; +HUMI40IN2; +INDO50CA91 PO; +LORA-674; +METH2.5T48; +MOTRIN; +ONDA4TAB6; +PROTPAK PO; +SUCR1TAB56
[2020-01-23 11:48] LABS: FREE T4 0.85 NG/DL (0.76-1.46); THYROID STIMULATING HORMONE 0.958 uIU/ML (0.358-3.740)
== END ==
LOC: M LABSMT 07:40
PROVIDERS: ATTEND Internal Medicine Gastroenterology
DX: R19.7 Diarrhea, unspecified (principal)

== ENCOUNTER → 2019-12-11 | Outpatient (REF) | payer OTHER ==
[2020-01-23 11:53] LABS: HEMOGLOBIN A1c 5.9 %
[2020-01-23 11:54] LABS: ALBUMIN 3.4 GM/DL (3.2-5.2); ALT/SGPT 33 U/L (12-78); BILIRUBIN,TOTAL 0.2 MG/DL (0.2-1.0); BLOOD UREA NITROGEN 6 MG/DL (7-18); CALCIUM LEVEL 8.9 MG/DL (8.5-10.1); CARBON DIOXIDE LEVEL 29 MEQ/L (21-32); CHLORIDE LEVEL 106 MEQ/L (98-107); CHOLESTEROL LEVEL 181 MG/DL (<200); CHOLESTEROL RISK RATIO 5.323 (<5); CREATININE FOR GFR 0.93 MG/DL (0.55-1.30); GLOMERULAR FILTRATION RATE > 60.0 (>58); GLUCOSE, FASTING 146 MG/DL (70-100); HDL CHOLESTEROL 34 MG/DL (>40); LDL CHOLESTEROL 108 MG/DL (<100); NON-HDL-C 147 MG/DL; POTASSIUM SERUM 4.2 MEQ/L (3.5-5.1); SODIUM LEVEL 137 MEQ/L (136-145); TOTAL PROTEIN 7.3 GM/DL (6.4-8.2); TRIGLYCERIDES LEVEL 195 MG/DL (<150)
== END ==
LOC: M SFHCPLAZ 07:38
PROVIDERS: ATTEND Nurse Practitioner Family
DX: R73.03 Prediabetes (principal); E78.2 Mixed hyperlipidemia

== ENCOUNTER → 2020-02-04 | Outpatient (CLI) | payer OTHER ==
[2020-02-04 17:28] LABS: HEMATOCRIT 40.6 % (36.0-47.0); HEMOGLOBIN 13.3 g/dl (12.0-15.5); MEAN CORPUSCULAR HEMOGLOBIN 33.3 pg (27.0-33.0); MEAN CORPUSCULAR HGB CONC 32.8 g/dl (32.0-36.5); MEAN CORPUSCULAR VOLUME 101.5 fl (80.0-96.0); PLATELET COUNT, AUTOMATED 182 10^3/uL (150-450); WHITE BLOOD COUNT 8.8 10^3/uL (4.0-10.0)
[2020-02-04 17:54] LABS: ALBUMIN 3.5 GM/DL (3.2-5.2); ALT/SGPT 157 U/L (12-78); BILIRUBIN,TOTAL 0.2 MG/DL (0.2-1.0); BLOOD UREA NITROGEN 9 MG/DL (7-18); C REACTIVE PROTEIN QUANTITATIV 1.43 MG/DL (0.00-0.30); CALCIUM LEVEL 9.3 MG/DL (8.5-10.1); CARBON DIOXIDE LEVEL 28 MEQ/L (21-32); CHLORIDE LEVEL 105 MEQ/L (98-107); CREATININE FOR GFR 0.93 MG/DL (0.55-1.30); GLOMERULAR FILTRATION RATE > 60.0 (>58); GLUCOSE, FASTING 100 MG/DL (70-100); POTASSIUM SERUM 3.8 MEQ/L (3.5-5.1); SODIUM LEVEL 139 MEQ/L (136-145); TOTAL PROTEIN 7.6 GM/DL (6.4-8.2)
[2020-02-04 18:12] LABS: ERYTHROCYTE SEDIMENTATION RATE 48 mm/hr (0-20)
[2020-02-04 18:44] LABS: EOSINOPHILS 7 % (0-3); LYMPHOCYTES 35 % (16-44); MONOCYTES 4 % (0-5); NEUTROPHILS 54 % (28-66)
[2020-02-04 18:46] LABS: PLATELET ESTIMATE NORMAL (NORMAL)
== END ==
LOC: M LAB 15:52
PROVIDERS: ATTEND Internal Medicine
DX: L40.50 Arthropathic psoriasis, unspecified (principal)

== ENCOUNTER → 2020-02-13 | Outpatient (REF) | payer OTHER ==
[2020-02-25 23:07] LABS: CALPROTECTIN STOOL 57 ug/g (0-120); PANCREATIC ELASTASE STOOL >500 (>200)
== END ==
LOC: M LAB REF 12:24
PROVIDERS: ATTEND Internal Medicine Gastroenterology
DX: R19.7 Diarrhea, unspecified (principal)

== ENCOUNTER → 2020-02-14 | Outpatient (CLI) | payer OTHER | LOC: M LABSMTC 11:45 | PROVIDERS: ATTEND Anesthesiology | DX: Z01.812 Encounter for preprocedural laboratory examination (principal); Z20.828 Contact with and (suspected) exposure to other viral communicable diseases | CPT/HCPCS: C9803; U0003 ==

== ENCOUNTER 2020-02-19 09:37 | Day surgery (SDC) | payer OTHER ==
[~2020-02-19] VITALS: Ht 175.3 cm; Wt 117.5 kg
[~2020-02-19 09:37] MED LIST changes: -ASPI81TA86 PO; +NS 1,000 ML IV ONE; -PROTPAK PO
[2020-02-19] MEDS ORDERED: ASPI81TA86 PO (10:26)
[2020-02-19] MEDS ORDERED: PROTPAK PO (10:27)
[2020-02-19] MEDS ORDERED: LIDOCAINE 2% 100MG/5ML SDV (FOR ANES.) As Ordered ONE ×2 (11:00→12:07)
[2020-02-19] MEDS ORDERED: propofoL 200 MG/20 ML VIAL As Ordered ONE ×2 (11:00→11:45)
[2020-02-19] MEDS ORDERED: fentaNYL 100 MCG/2 ML INJECTION (J3010) As Ordered ONE (11:02)
--- NOTE | 2020-02-19 11:41 | ROOR ---
Patient Name: Astrid Chester Procedure Date: 02/19/2020 11:34 AM Date of : 1975 Age: 44 Room: [facility] Gender: Female Note Status: Finalized Procedure: Upper GI endoscopy Indications: Heartburn, Endoscopy to assess diarrhea in patient suspected of having disease of the small-bowel Providers: Beny CHAND MD Referring MD: Kandi Pierce NP Requesting Provider: Medicines: Monitored Anesthesia Care Complications: No immediate complications. Procedure: Pre-Anesthesia Assessment: - The heart rate, respiratory rate, oxygen saturations, blood pressure, adequacy of pulmonary ventilation, and response to care were monitored throughout the procedure. The Endoscope was introduced through the mouth, and advanced to the second part of duodenum. The upper GI endoscopy was accomplished without difficulty. The patient tolerated the procedure well. Findings: The esophagus was normal. The stomach was normal. The examined duodenum was normal. Biopsies for histology were taken with a cold forceps in the second portion of the duodenum and in the third portion of the duodenum for evaluation of celiac disease. Impression: - Normal esophagus. - Normal stomach. - Normal examined duodenum. - Biopsies were taken with a cold forceps for evaluation of celiac disease. Recommendation: - Telephone endoscopist for pathology results in 2 weeks. Beny Chand MD Beny CHAND MD 02/19/2020 11:41:12 AM Electronically signed by Beny CHAND MD Number of Addenda: 0 Note Initiated On: 02/19/2020 11:34 AM Estimated Blood Loss: Estimated blood loss: none.
--- NOTE | 2020-02-19 12:02 | ROOR ---
Patient Name: Astrid Chester Procedure Date: 02/19/2020 11:34 AM Date of : 1975 Age: 44 Room: [facility] Gender: Female Note Status: Finalized Procedure: Colonoscopy Indications: Clinically significant diarrhea of unexplained origin Providers: Beny CHAND MD Referring MD: Kandi Pierce NP Requesting Provider: Medicines: Monitored Anesthesia Care Complications: No immediate complications. Procedure: Pre-Anesthesia Assessment: - The heart rate, respiratory rate, oxygen saturations, blood pressure, adequacy of pulmonary ventilation, and response to care were monitored throughout the procedure. The Colonoscope was introduced through the anus and advanced to 10 cm into the ileum. The colonoscopy was performed without difficulty. The patient tolerated the procedure well. The quality of the bowel preparation was fair. Findings: The perianal and digital rectal examinations were normal. Two sessile polyps were found in the hepatic flexure and ascending colon. The polyps were small in size. These polyps were removed with a cold snare. Resection and retrieval were complete. Small Internal Hemorrhoids. The exam was otherwise without abnormality on direct and retroflexion views. Biopsies for histology were taken with a cold forceps from the entire colon for evaluation of microscopic colitis. Impression: - Preparation of the colon was fair. - Two small polyps at the hepatic flexure and in the ascending colon, removed with a cold snare. Resected and retrieved. - Small Internal Hemorrhoids. - The colon mucosa is slightly erythematous in the sigmoid, but the colon is otherwise normal on direct and retroflexion views. - Biopsies were taken with a cold forceps from the entire colon for evaluation of microscopic colitis. Recommendation: - Telephone endoscopist for pathology results in 2 weeks. Beny Chand MD Beny CHAND MD 02/19/2020 12:01:46 PM Electronically signed by Beny CHAND MD Number of Addenda: 0 Note Initiated On: 02/19/2020 11:34 AM Estimated Blood Loss: Estimated blood loss: none.
[2020-02-19 12:30] VITALS: BP 106/61
[2020-02-19] MEDS ORDERED: ePHEDrine SULFATE 25 MG/5 ML(5MG/ML) SYRINGE As Ordered ONE (12:52)
== END 2020-02-19 12:36 | disposition home or self-care (01) ==
LOC: M OPP 09:37
PROVIDERS: ATTEND Internal Medicine Gastroenterology
DX: D12.2 Benign neoplasm of ascending colon (principal); R19.7 Diarrhea, unspecified; R12 Heartburn; F17.210 Nicotine dependence, cigarettes, uncomplicated; Z79.899 Other long term (current) drug therapy; Z88.2 Allergy status to sulfonamides
CPT/HCPCS: 43239; 45380; 45385; 88305; J3010

== ENCOUNTER → 2020-04-15 | Outpatient (CLI) | payer SELFPAY ==
[~2020-04-15] MED LIST changes: +ASPI81TA86 PO; -NS 1,000 ML IV ONE; +PROTPAK PO
== END ==
LOC: M LABSMTC 08:48
PROVIDERS: ATTEND Pediatrics
DX: Z11.59 Encounter for screening for other viral diseases (principal)

== ENCOUNTER → 2020-05-06 | Outpatient (REF) | payer OTHER ==
[2020-05-06 17:18] LABS: HEMATOCRIT 43.1 % (36.0-47.0); MEAN CORPUSCULAR HGB CONC 32.5 g/dl (32.0-36.5); MEAN CORPUSCULAR VOLUME 101.7 fl (80.0-96.0); PLATELET COUNT, AUTOMATED 221 10^3/uL (150-450); RED BLOOD COUNT 4.24 10^6/uL (4.00-5.40); WHITE BLOOD COUNT 10.7 10^3/uL (4.0-10.0)
[2020-05-06 17:22] LABS: HEMOGLOBIN A1c 5.7 %
[2020-05-06 17:26] LABS: ALBUMIN 3.6 GM/DL (3.2-5.2); ALT/SGPT 50 U/L (12-78); BILIRUBIN,TOTAL 0.3 MG/DL (0.2-1.0); BLOOD UREA NITROGEN 11 MG/DL (7-18); C REACTIVE PROTEIN QUANTITATIV 1.37 MG/DL (0.00-0.30); CALCIUM LEVEL 8.9 MG/DL (8.5-10.1); CARBON DIOXIDE LEVEL 30 MEQ/L (21-32); CHLORIDE LEVEL 103 MEQ/L (98-107); CREATININE FOR GFR 0.95 MG/DL (0.55-1.30); GLOMERULAR FILTRATION RATE > 60.0 (>58); GLUCOSE, FASTING 127 MG/DL (70-100); POTASSIUM SERUM 4.2 MEQ/L (3.5-5.1); SODIUM LEVEL 136 MEQ/L (136-145); TOTAL PROTEIN 7.6 GM/DL (6.4-8.2)
[2020-05-06 17:40] LABS: ANISOCYTOSIS 1+; ATYPICAL LYMPH 6 % (0-5); EOSINOPHILS 6 % (0-3); LYMPHOCYTES 25 % (16-44); MONOCYTES 3 % (0-5); MYELOCYTES 1 % (0-0); NEUTROPHILS 57 % (28-66)
[2020-05-06 17:41] LABS: MICROCYTOSIS 2+; PLATELET ESTIMATE NORMAL (NORMAL)
[2020-05-06 17:42] LABS: ERYTHROCYTE SEDIMENTATION RATE 29 mm/hr (0-20)
== END ==
LOC: M PLALAB 15:25
PROVIDERS: ATTEND Internal Medicine
DX: L40.50 Arthropathic psoriasis, unspecified (principal); R73.03 Prediabetes

== ENCOUNTER → 2020-07-09 | Outpatient (CLI) | payer OTHER ==
[~2020-07-09] MED LIST changes: +GABA-282; -GABA-843
[2020-07-09 18:03] LABS: HEMATOCRIT 40.1 % (36.0-47.0); HEMOGLOBIN 12.8 g/dl (12.0-15.5); MEAN CORPUSCULAR HEMOGLOBIN 31.9 pg (27.0-33.0); MEAN CORPUSCULAR HGB CONC 31.9 g/dl (32.0-36.5); PLATELET COUNT, AUTOMATED 213 10^3/uL (150-450); RED BLOOD COUNT 4.01 10^6/uL (4.00-5.40)
[2020-07-09 18:26] LABS: ALBUMIN 3.6 GM/DL (3.2-5.2); ALT/SGPT 53 U/L (12-78); BILIRUBIN,TOTAL 0.4 MG/DL (0.2-1.0); BLOOD UREA NITROGEN 9 MG/DL (7-18); C REACTIVE PROTEIN QUANTITATIV 1.19 MG/DL (0.00-0.30); CALCIUM LEVEL 9.3 MG/DL (8.5-10.1); CARBON DIOXIDE LEVEL 30 MEQ/L (21-32); CHLORIDE LEVEL 104 MEQ/L (98-107); CREATININE FOR GFR 0.81 MG/DL (0.55-1.30); GLOMERULAR FILTRATION RATE > 60.0 (>58); GLUCOSE, FASTING 83 MG/DL (70-100); POTASSIUM SERUM 3.9 MEQ/L (3.5-5.1); SODIUM LEVEL 136 MEQ/L (136-145); TOTAL PROTEIN 7.6 GM/DL (6.4-8.2)
[2020-07-09 18:29] LABS: ATYPICAL LYMPH 10 % (0-5); LYMPHOCYTES 22 % (16-44); MONOCYTES 2 % (0-5); NEUTROPHILS 65 % (28-66); PLATELET ESTIMATE NORMAL (NORMAL)
[2020-07-09 18:33] LABS: ERYTHROCYTE SEDIMENTATION RATE 46 mm/hr (0-20)
== END ==
LOC: M LAB 16:56
PROVIDERS: ATTEND Internal Medicine
DX: L40.50 Arthropathic psoriasis, unspecified (principal)

== ENCOUNTER → 2020-07-10 | Outpatient (REF) | payer OTHER ==
[2020-07-10 17:59] LABS: HEPATITIS B SURFACE ANTIGEN NEGATIVE (NEGATIVE); HEPATITIS C VIRUS ABY INDEX < 0.0 INDEX (<0.8)
== END ==
LOC: M SFHCRHEU 11:45
PROVIDERS: ATTEND Internal Medicine
DX: L40.50 Arthropathic psoriasis, unspecified (principal)

== ENCOUNTER → 2020-09-19 | Outpatient (CLI) | payer OTHER ==
[2020-09-19 10:25] LABS: HEMATOCRIT 43.2 % (36.0-47.0); HEMOGLOBIN 13.8 g/dl (12.0-15.5); MEAN CORPUSCULAR HEMOGLOBIN 33.5 pg (27.0-33.0); MEAN CORPUSCULAR HGB CONC 31.9 g/dl (32.0-36.5); MEAN CORPUSCULAR VOLUME 104.9 fl (80.0-96.0); PLATELET COUNT, AUTOMATED 219 10^3/uL (150-450); RED BLOOD COUNT 4.12 10^6/uL (4.00-5.40); WHITE BLOOD COUNT 8.6 10^3/uL (4.0-10.0)
[2020-09-19 11:05] LABS: ALBUMIN 3.5 GM/DL (3.2-5.2); ALT/SGPT 166 U/L (12-78); BILIRUBIN,TOTAL 0.3 MG/DL (0.2-1.0); BLOOD UREA NITROGEN 11 MG/DL (7-18); C REACTIVE PROTEIN QUANTITATIV 0.81 MG/DL (0.00-0.30); CALCIUM LEVEL 9.4 MG/DL (8.5-10.1); CARBON DIOXIDE LEVEL 32 MEQ/L (21-32); CHLORIDE LEVEL 106 MEQ/L (98-107); CREATININE FOR GFR 0.76 MG/DL (0.55-1.30); ERYTHROCYTE SEDIMENTATION RATE 33 mm/hr (0-20); GLOMERULAR FILTRATION RATE > 60.0 (>58); GLUCOSE, FASTING 80 MG/DL (70-100); POTASSIUM SERUM 4.6 MEQ/L (3.5-5.1); SODIUM LEVEL 139 MEQ/L (136-145); TOTAL PROTEIN 7.4 GM/DL (6.4-8.2)
[2020-09-19 11:14] LABS: ATYPICAL LYMPH 3 % (0-5); EOSINOPHILS 2 % (0-3); LYMPHOCYTES 25 % (16-44); MONOCYTES 4 % (0-5); NEUTROPHILS 66 % (28-66)
[2020-09-19 11:15] LABS: PLATELET ESTIMATE NORMAL (NORMAL)
== END ==
LOC: M LAB 08:31
PROVIDERS: ATTEND Internal Medicine
DX: L40.50 Arthropathic psoriasis, unspecified (principal)

== ENCOUNTER → 2020-10-13 | Outpatient (CLI) | payer OTHER ==
[2020-10-13 13:28] LABS: HEMATOCRIT 43.7 % (36.0-47.0); HEMOGLOBIN 13.9 g/dl (12.0-15.5); MEAN CORPUSCULAR HGB CONC 31.8 g/dl (32.0-36.5); MEAN CORPUSCULAR VOLUME 103.8 fl (80.0-96.0); PLATELET COUNT, AUTOMATED 210 10^3/uL (150-450); RED BLOOD COUNT 4.21 10^6/uL (4.00-5.40); WHITE BLOOD COUNT 7.6 10^3/uL (4.0-10.0)
[2020-10-13 13:53] LABS: ALBUMIN 3.7 GM/DL (3.2-5.2); ALT/SGPT 46 U/L (12-78); AMYLASE 39 U/L (25-115); BILIRUBIN,TOTAL 0.4 MG/DL (0.2-1.0); BLOOD UREA NITROGEN 9 MG/DL (7-18); CALCIUM LEVEL 9.4 MG/DL (8.5-10.1); CARBON DIOXIDE LEVEL 29 MEQ/L (21-32); CHLORIDE LEVEL 107 MEQ/L (98-107); CREATININE FOR GFR 0.71 MG/DL (0.55-1.30); GLOMERULAR FILTRATION RATE > 60.0 (>58); GLUCOSE, FASTING 82 MG/DL (70-100); LIPASE 63 U/L (73-393); POTASSIUM SERUM 4.6 MEQ/L (3.5-5.1); SODIUM LEVEL 139 MEQ/L (136-145); TOTAL PROTEIN 7.7 GM/DL (6.4-8.2)
[2020-10-13 14:01] LABS: ALBUMIN 3.4 GM/DL (3.2-5.2); ALT/SGPT 45 U/L (12-78); AMYLASE 39 U/L (25-115); BILIRUBIN,TOTAL 0.4 MG/DL (0.2-1.0); BLOOD UREA NITROGEN 8 MG/DL (7-18); CALCIUM LEVEL 9.5 MG/DL (8.5-10.1); CARBON DIOXIDE LEVEL 28 MEQ/L (21-32); CHLORIDE LEVEL 105 MEQ/L (98-107); CREATININE FOR GFR 0.68 MG/DL (0.55-1.30); GLOMERULAR FILTRATION RATE > 60.0 (>58); GLUCOSE, FASTING 83 MG/DL (70-100); IRON (FE) 52 UG/DL (50-170); LIPASE 61 U/L (73-393); PERCENT SATURATION 16.4 % (13.2-45.0); POTASSIUM SERUM 4.5 MEQ/L (3.5-5.1); SODIUM LEVEL 139 MEQ/L (136-145); TOTAL IRON BINDING CAPACITY 318 UG/DL (250-450); TOTAL PROTEIN 7.5 GM/DL (6.4-8.2)
[2020-10-13 14:13] LABS: HEPATITIS B SURFACE ANTIGEN NEGATIVE (NEGATIVE)
[2020-10-13 14:41] LABS: HEPATITIS C VIRUS ABY INDEX < 0.0 INDEX (<0.8)
[2020-10-13 14:42] LABS: HEPATITIS B CORE ANTIBODY IGM NEGATIVE (NEGATIVE)
[2020-10-13 14:43] LABS: HEPATITIS A ANTIBODY IGM NEGATIVE (NEGATIVE)
[2020-10-13 15:21] LABS: ATYPICAL LYMPH 4 % (0-5); EOSINOPHILS 1 % (0-3); LYMPHOCYTES 25 % (16-44); MONOCYTES 5 % (0-5); NEUTROPHILS 65 % (28-66); PLATELET ESTIMATE NORMAL (NORMAL)
== END ==
LOC: M PLALAB 09:07
PROVIDERS: ATTEND Internal Medicine Gastroenterology
DX: R11.0 Nausea (principal); L40.50 Arthropathic psoriasis, unspecified; R79.89 Other specified abnormal findings of blood chemistry

== ENCOUNTER → 2020-10-15 | Outpatient (REF) | payer OTHER | LOC: M LAB REF 10:23 | PROVIDERS: ATTEND Internal Medicine Gastroenterology | DX: R11.0 Nausea (principal) ==

== ENCOUNTER → 2020-10-29 | Outpatient (REF) | payer OTHER ==
[2020-10-29 10:52] LABS: HEMATOCRIT 43.6 % (36.0-47.0); HEMOGLOBIN 13.9 g/dl (12.0-15.5); MEAN CORPUSCULAR HEMOGLOBIN 33.2 pg (27.0-33.0); MEAN CORPUSCULAR HGB CONC 31.9 g/dl (32.0-36.5); MEAN CORPUSCULAR VOLUME 104.1 fl (80.0-96.0); PLATELET COUNT, AUTOMATED 193 10^3/uL (150-450); RED BLOOD COUNT 4.19 10^6/uL (4.00-5.40); WHITE BLOOD COUNT 6.1 10^3/uL (4.0-10.0)
[2020-10-29 11:19] LABS: EOSINOPHILS 2 % (0-3); LYMPHOCYTES 25 % (16-44); MONOCYTES 1 % (0-5); NEUTROPHILS 72 % (28-66)
[2020-10-29 11:20] LABS: PLATELET ESTIMATE NORMAL (NORMAL)
== END ==
LOC: M PLALAB 09:54
PROVIDERS: ATTEND Internal Medicine Rheumatology
DX: L40.50 Arthropathic psoriasis, unspecified (principal); R79.89 Other specified abnormal findings of blood chemistry

== ENCOUNTER → 2020-10-29 | Outpatient (REF) | payer OTHER ==
[2020-10-29 11:20] LABS: HEMOGLOBIN A1c 5.5 %
[2020-10-29 11:24] LABS: ALBUMIN 3.5 GM/DL (3.2-5.2); ALT/SGPT 41 U/L (12-78); BILIRUBIN,TOTAL 0.3 MG/DL (0.2-1.0); BLOOD UREA NITROGEN 6 MG/DL (7-18); CALCIUM LEVEL 8.7 MG/DL (8.5-10.1); CARBON DIOXIDE LEVEL 27 MEQ/L (21-32); CHLORIDE LEVEL 108 MEQ/L (98-107); CHOLESTEROL LEVEL 174 MG/DL (<200); CHOLESTEROL RISK RATIO 5.272 (<5); GLOMERULAR FILTRATION RATE > 60.0 (>58); GLUCOSE, FASTING 99 MG/DL (70-100); HDL CHOLESTEROL 33 MG/DL (>40); LDL CHOLESTEROL 121 MG/DL (<100); MAGNESIUM LEVEL 2.1 MG/DL (1.8-2.4); NON-HDL-C 141 MG/DL; POTASSIUM SERUM 3.8 MEQ/L (3.5-5.1); SODIUM LEVEL 139 MEQ/L (136-145); TOTAL PROTEIN 7.5 GM/DL (6.4-8.2); TRIGLYCERIDES LEVEL 101 MG/DL (<150)
[2020-10-29 11:36] LABS: TOTAL 25(OH) VITAMIN D 35.8 NG/ML (30.0-100.0)
== END ==
LOC: M SFHCPLAZ 08:20
PROVIDERS: ATTEND Nurse Practitioner Family
DX: R73.03 Prediabetes (principal); E78.2 Mixed hyperlipidemia; K21.9 Gastro-esophageal reflux disease without esophagitis; G89.29 Other chronic pain

== ENCOUNTER → 2020-11-10 | Outpatient (CLI) | payer OTHER ==
[~2020-11-10] MED LIST changes: +ALBU8.5H INH; -LORA-674; +LORA-674 PO; +METH25IN12 SC
== END ==
LOC: M LABSMTC 09:49
PROVIDERS: ATTEND Anesthesiology
DX: Z01.812 Encounter for preprocedural laboratory examination (principal); Z20.822 Contact with and (suspected) exposure to COVID-19

== ENCOUNTER 2020-11-14 13:33 | Day surgery (SDC) | payer OTHER ==
[~2020-11-14] VITALS: Ht 175.3 cm; Wt 103.9 kg
[~2020-11-14 13:33] MED LIST changes: +FECAL MICROBIOTA PREPARATION 250 ML BTL (J3590) XX ONE; +NS 1,000 ML IV ONE
[2020-11-14] MEDS ORDERED: LIDOCAINE 2% 100MG/5ML SDV (FOR ANES.) As Ordered ONE (14:26)
[2020-11-14] MEDS ORDERED: propofoL 200 MG/20 ML VIAL As Ordered ONE ×2 (14:26→14:48)
--- NOTE | 2020-11-14 14:55 | ROOR ---
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 Procedure: Pre-Anesthesia Assessment: - The heart rate, respiratory rate, oxygen saturations, blood pressure, adequacy of pulmonary ventilation, and response to care were monitored throughout the procedure. The Colonoscope was introduced through the anus and advanced to the terminal ileum, with identification of the appendiceal orifice and IC valve. The colonoscopy was performed without difficulty. The patient tolerated the procedure well. Findings: The decision was made to proceed with fecal microbiota transplant (bacteriotherapy). Donor stool was supplied as per protocol. Approximately 250 mL of the donor stool was instilled. A detailed colonoscopic exam could not be performed upon scope withdrawal secondary to limited visibility from the instilled stool. This precludes the ability to screen for colon cancer, and the patient was made aware of this prior to the procedure. Impression: - Fecal Microbiota Transplant (Bacteriotherapy) performed. Recommendation: - Avoid/limit use of future broad spectrum antibiotics if at all possible. If need for antibiotic therapy arises in the future, please notify your primary care physician for review/discussion. - Return to my office in 2 months. Procedure Code(s): --- Professional --- 77416, Colonoscopy, flexible; diagnostic, including collection of specimen(s) by brushing or washing, when performed (separate procedure) 13740, Preparation of fecal microbiota for instillation, including assessment of donor specimen Diagnosis Code(s): --- Professional --- A04.71, Enterocolitis due to Clostridium difficile, recurrent CPT copyright 2019 [employer]. All rights reserved. The codes documented in this report are preliminary and upon iron bender review may be revised to meet current compliance requirements. Beny Chand MD Beny Chand MD 11/14/2020 2:55:07 PM Electronically signed by Beny Chand MD Number of Addenda: 0 Note Initiated On: 11/14/2020 2:34 PM Estimated Blood Loss: Estimated blood loss: none.
[2020-11-14 15:30] VITALS: BP 134/80
== END 2020-11-14 16:31 | disposition home or self-care (01) ==
LOC: M OPP 13:33
PROVIDERS: ATTEND Internal Medicine Gastroenterology
DX: A04.71 Enterocolitis due to Clostridium difficile, recurrent (principal); Z80.0 Family history of malignant neoplasm of digestive organs; Z80.1 Family history of malignant neoplasm of trachea, bronchus and lung; K21.9 Gastro-esophageal reflux disease without esophagitis; Z79.82 Long term (current) use of aspirin; Z79.899 Other long term (current) drug therapy; Z88.2 Allergy status to sulfonamides

== ENCOUNTER 2020-12-29 14:54 | Emergency (ER) | payer OTHER ==
[~2020-12-29] VITALS: Ht 175.3 cm; Wt 100.3 kg
[~2020-12-29 14:54] MED LIST changes: -FECAL MICROBIOTA PREPARATION 250 ML BTL (J3590) XX ONE; -NS 1,000 ML IV ONE
[2020-12-29 14:55] VITALS: BP 113/58
[2020-12-29 16:26] LABS: HEMATOCRIT 45.4 % (36.0-47.0); HEMOGLOBIN 15.1 g/dl (12.0-15.5); MEAN CORPUSCULAR HEMOGLOBIN 33.9 pg (27.0-33.0); MEAN CORPUSCULAR HGB CONC 33.3 g/dl (32.0-36.5); PLATELET COUNT, AUTOMATED 183 10^3/uL (150-450); RED BLOOD COUNT 4.45 10^6/uL (4.00-5.40); WHITE BLOOD COUNT 8.8 10^3/uL (4.0-10.0)
[2020-12-29 16:50] LABS: ALBUMIN 3.6 GM/DL (3.2-5.2); BILIRUBIN,DIRECT 0.1 MG/DL (0.0-0.2); BILIRUBIN,TOTAL 0.3 MG/DL (0.2-1.0); TOTAL PROTEIN 7.9 GM/DL (6.4-8.2)
[2020-12-29 16:56] LABS: ATYPICAL LYMPH 4 % (0-5); EOSINOPHILS 3 % (0-3); LYMPHOCYTES 18 % (16-44); MONOCYTES 5 % (0-5); NEUTROPHILS 70 % (28-66); PLATELET ESTIMATE NORMAL (NORMAL)
[2020-12-29] MEDS ORDERED: ONDANSETRON 4MG/2ML VIAL IV ONE (17:20)
[2020-12-29] MEDS ORDERED: NS 1,000 ML IV ONE (17:20)
[2020-12-29] MEDS ORDERED: MORPHINE 4 MG/ML 1ML VIAL/SYRINGE (J2270) IV ONE (17:20)
[2020-12-29] MEDS ORDERED: ISOVUE-370 76% 100ML VIAL As Ordered ONE (17:27)
--- NOTE | 2020-12-29 18:40 | REPVR ---
PROCEDURE INFORMATION: Exam: CT Abdomen And Pelvis With Contrast Exam date and time: 12/29/2020 5:53 PM Age: 45 years old Clinical indication: Abdominal pain; Additional info: Ruq pain TECHNIQUE: Imaging protocol: Computed tomography of the abdomen and pelvis with contrast. Axial, coronal and sagittal reformatted images were created and reviewed. Radiation optimization: All CT scans at this facility use at least one of these dose optimization techniques: automated exposure control; mA and/or kV adjustment per patient size (includes targeted exams where dose is matched to clinical indication); or iterative reconstruction. Contrast material: ISOVUE 370; Contrast volume: 100 ml; Contrast route: INTRAVENOUS (IV); COMPARISON: [place] PELVIS COMPLETE 08/09/2019 8:31 AM FINDINGS: Lungs: Right lower lobe calcified granuloma. Liver: Mild hepatomegaly. Diffuse hepatic steatosis. Gallbladder and bile ducts: Status post cholecystectomy. No biliary ductal dilatation. Pancreas: Unremarkable. Spleen: Unremarkable. Adrenal glands: Normal. No mass. Kidneys and ureters: Subcentimeter low-density renal lesions bilaterally, measuring up to 7 mm on the right, too small to characterize. No radiodense calculi. No hydronephrosis. Stomach and bowel: Mild wall thickening of the small bowel loops in the lower abdomen and pelvis with subtle infiltration of the adjacent mesenteric fat. No obstruction. No pneumatosis. Appendix: Normal. Intraperitoneal space: No ascites. No organized collection. No free air. Vasculature: Mild atherosclerotic disease. No aneurysm or dissection. Lymph nodes: No pathologically enlarged lymph nodes. Urinary bladder: Mild circumferential urinary bladder wall thickening, likely secondary to underdistention. Reproductive: Status post hysterectomy. Bones/joints: No acute osseous abnormality. Degenerative changes. Soft tissues: Unremarkable. IMPRESSION: 1. Query mild nonspecific enteritis, as described above. 2. Additional findings, as above. COMMENTS: Consistent with the [place] [employer]'s Incidental Findings Committee white paper (J Am Yolis Radiol 2018): Any incidental renal lesion less than 1 cm or classified as too small to characterize, or any incidental cystic renal lesion characterized as simple-appearing, is likely benign. No follow-up imaging is recommended for these lesions per consensus recommendations based on imaging criteria. Electronically signed by: Fletcher Rosas On 12/29/2020 18:39:32 PM
[2020-12-29] MEDS ORDERED: ONDA4TAB6 PO (20:19)
== END 2020-12-29 21:59 | disposition home or self-care (01) ==
LOC: M ED 14:54
DX: K52.9 Noninfective gastroenteritis and colitis, unspecified (principal); E66.9 Obesity, unspecified; K21.9 Gastro-esophageal reflux disease without esophagitis; K57.32 Diverticulitis of large intestine without perforation or abscess without bleeding; J44.9 Chronic obstructive pulmonary disease, unspecified; N80.9 Endometriosis, unspecified; Z86.19 Personal history of other infectious and parasitic diseases; F41.9 Anxiety disorder, unspecified; F32.9 Major depressive disorder, single episode, unspecified; F17.200 Nicotine dependence, unspecified, uncomplicated; F12.10 Cannabis abuse, uncomplicated; Z79.82 Long term (current) use of aspirin; Z79.899 Other long term (current) drug therapy; Z88.2 Allergy status to sulfonamides
CPT/HCPCS: 36415; 74177; 80047; 80076; 81001; 83605; 83690; 84702; 85025; 87040; 96361; 96374; 96375; 99284; J2270; J2405; Q9967

== ENCOUNTER → 2021-02-20 | Outpatient (CLI) | payer OTHER ==
[~2021-02-20] MED LIST changes: +ONDA4TAB6 PO
[2021-02-20 10:43] LABS: HEMATOCRIT 42.5 % (36.0-47.0); HEMOGLOBIN 13.7 g/dl (12.0-15.5); MEAN CORPUSCULAR HEMOGLOBIN 33.3 pg (27.0-33.0); MEAN CORPUSCULAR HGB CONC 32.2 g/dl (32.0-36.5); MEAN CORPUSCULAR VOLUME 103.4 fl (80.0-96.0); PLATELET COUNT, AUTOMATED 178 10^3/uL (150-450); RED BLOOD COUNT 4.11 10^6/uL (4.00-5.40); WHITE BLOOD COUNT 7.3 10^3/uL (4.0-10.0)
[2021-02-20 11:05] LABS: ALBUMIN 3.4 GM/DL (3.2-5.2); ALT/SGPT 26 U/L (12-78); BILIRUBIN,TOTAL 0.3 MG/DL (0.2-1.0); BLOOD UREA NITROGEN 9 MG/DL (7-18); C REACTIVE PROTEIN QUANTITATIV 0.74 MG/DL (0.00-0.30); CALCIUM LEVEL 9.6 MG/DL (8.5-10.1); CARBON DIOXIDE LEVEL 30 MEQ/L (21-32); CHLORIDE LEVEL 108 MEQ/L (98-107); CREATININE FOR GFR 0.79 MG/DL (0.55-1.30); GLOMERULAR FILTRATION RATE > 60.0 (>58); GLUCOSE, FASTING 92 MG/DL (70-100); POTASSIUM SERUM 4.7 MEQ/L (3.5-5.1); SODIUM LEVEL 138 MEQ/L (136-145); TOTAL PROTEIN 7.5 GM/DL (6.4-8.2)
[2021-02-20 11:15] LABS: ERYTHROCYTE SEDIMENTATION RATE 36 mm/hr (0-20)
[2021-02-20 11:33] LABS: ANISOCYTOSIS 1+; ATYPICAL LYMPH 2 % (0-5); EOSINOPHILS 2 % (0-3); LYMPHOCYTES 17 % (16-44); MONOCYTES 4 % (0-5); NEUTROPHILS 75 % (28-66); PLATELET ESTIMATE NORMAL (NORMAL)
== END ==
LOC: M LAB 09:05
PROVIDERS: ATTEND Internal Medicine Rheumatology
DX: L40.50 Arthropathic psoriasis, unspecified (principal); R76.0 Raised antibody titer

== ENCOUNTER 2021-09-18 14:31 | Emergency (ER) | payer OTHER ==
[~2021-09-18] VITALS: Ht 175.3 cm; Wt 87.5 kg
[~2021-09-18 14:31] MED LIST changes: -HYDR-3713 PO
[2021-09-18 14:32] VITALS: BP 116/68
== END 2021-09-18 16:25 | disposition left against medical advice (07) ==
LOC: M ED 14:31
DX: Z53.21 Procedure and treatment not carried out due to patient leaving prior to being seen by health care provider (principal)

== ENCOUNTER → 2021-09-18 | Outpatient (CLI) | payer OTHER ==
[~2021-09-18] MED LIST changes: +HYDR-3713 PO
== END ==
LOC: M RAD 13:40
PROVIDERS: ATTEND Internal Medicine Gastroenterology
DX: R10.84 Generalized abdominal pain (principal)

== ENCOUNTER 2021-09-21 11:09 | Emergency (ER) | payer OTHER ==
[~2021-09-21] VITALS: Ht 175.3 cm; Wt 87.5 kg
[~2021-09-21 11:09] MED LIST changes: -HYDR-3713 PO
[2021-09-21 12:14] LABS: HEMATOCRIT 41.6 % (36.0-47.0); HEMOGLOBIN 13.6 g/dl (12.0-15.5); MEAN CORPUSCULAR HEMOGLOBIN 33.3 pg (27.0-33.0); MEAN CORPUSCULAR HGB CONC 32.7 g/dl (32.0-36.5); PLATELET COUNT, AUTOMATED 183 10^3/uL (150-450); RED BLOOD COUNT 4.08 10^6/uL (4.00-5.40)
[2021-09-21 12:48] LABS: ALBUMIN 3.8 GM/DL (3.2-5.2); ALT/SGPT 17 U/L (12-78); ATYPICAL LYMPH 7 % (0-5); BILIRUBIN,DIRECT 0.1 MG/DL (0.0-0.2); BILIRUBIN,TOTAL 0.3 MG/DL (0.2-1.0); BLOOD UREA NITROGEN 6 MG/DL (7-18); CALCIUM LEVEL 9.6 MG/DL (8.5-10.1); CARBON DIOXIDE LEVEL 31 MEQ/L (21-32); CHLORIDE LEVEL 107 MEQ/L (98-107); EOSINOPHILS 4 % (0-3); GLOMERULAR FILTRATION RATE > 60.0 (>58); GLUCOSE, FASTING 93 MG/DL (70-100); LIPASE 99 U/L (73-393); LYMPHOCYTES 29 % (16-44); MONOCYTES 4 % (0-5); NEUTROPHILS 56 % (28-66); POTASSIUM SERUM 4.6 MEQ/L (3.5-5.1); SODIUM LEVEL 139 MEQ/L (136-145); TOTAL PROTEIN 7.6 GM/DL (6.4-8.2)
[2021-09-21 12:49] LABS: PLATELET ESTIMATE NORMAL (NORMAL)
[2021-09-21] MEDS: GASTROGRAFIN SOLUTION 30ML PO SCH ×2 (15:04→15:34)
[2021-09-21] MEDS ORDERED: MORPHINE 4 MG/ML 1ML VIAL/SYRINGE IV ONE (15:40)
[2021-09-21] MEDS ORDERED: ISOVUE-370 76% 100ML VIAL As Ordered ONE (17:15)
[2021-09-21] MEDS ORDERED: ONDANSETRON 4MG/2ML VIAL IV ONE (17:30)
[2021-09-21] MEDS ORDERED: HYDR-3713 PO (21:24)
[2021-09-21 21:39] VITALS: BP 119/87
== END 2021-09-21 21:41 | disposition home or self-care (01) ==
LOC: M ED 11:09
DX: J84.10 Pulmonary fibrosis, unspecified (principal); M51.26 Other intervertebral disc displacement, lumbar region; K83.8 Other specified diseases of biliary tract; M48.061 Spinal stenosis, lumbar region without neurogenic claudication; M43.16 Spondylolisthesis, lumbar region; Z79.82 Long term (current) use of aspirin; Z79.899 Other long term (current) drug therapy; Z88.2 Allergy status to sulfonamides
CPT/HCPCS: 74177; 76705; 80048; 80076; 83690; 85025; 96374; 96375; 99284; J2270; J2405; Q9963; Q9967

== ENCOUNTER → 2021-09-21 | Outpatient (CLI) | payer OTHER ==
[~2021-09-21] MED LIST changes: +HYDR-3713 PO
== END ==
LOC: M RAD 10:47
PROVIDERS: ATTEND Internal Medicine Gastroenterology
DX: T18.3XXD Foreign body in small intestine, subsequent encounter (principal); T18.4XXD Foreign body in colon, subsequent encounter

== ENCOUNTER → 2021-09-21 | Outpatient (REF) | payer OTHER ==
[2021-09-25 14:42] LABS: FOLATE 11.6 NG/ML
== END ==
LOC: M LAB REF 08:25
PROVIDERS: ATTEND Internal Medicine
DX: D75.89 Other specified diseases of blood and blood-forming organs (principal)

== ENCOUNTER → 2021-10-27 | Outpatient (CLI) | payer OTHER ==
[~2021-10-27] MED LIST changes: +HYDR-3713 PO
== END ==
LOC: M RAD 12:41
PROVIDERS: ATTEND Internal Medicine Gastroenterology
DX: R93.3 Abnormal findings on diagnostic imaging of other parts of digestive tract (principal); R94.5 Abnormal results of liver function studies; R10.84 Generalized abdominal pain

== ENCOUNTER → 2021-12-16 | Outpatient (CLI) | payer OTHER ==
[2021-12-16 11:19] LABS: HEMATOCRIT 41.6 % (36.0-47.0); HEMOGLOBIN 13.3 g/dl (12.0-15.5); MEAN CORPUSCULAR HEMOGLOBIN 32.8 pg (27.0-33.0); MEAN CORPUSCULAR VOLUME 102.7 fl (80.0-96.0); PLATELET COUNT, AUTOMATED 152 10^3/uL (150-450); RED BLOOD COUNT 4.05 10^6/uL (4.00-5.40); WHITE BLOOD COUNT 6.5 10^3/uL (4.0-10.0)
[2021-12-16 12:23] LABS: ALBUMIN 3.4 GM/DL (3.2-5.2); ALT/SGPT 18 U/L (12-78); BILIRUBIN,TOTAL 0.3 MG/DL (0.2-1.0); BLOOD UREA NITROGEN 9 MG/DL (7-18); CALCIUM LEVEL 9.2 MG/DL (8.5-10.1); CARBON DIOXIDE LEVEL 30 MEQ/L (21-32); CHLORIDE LEVEL 106 MEQ/L (98-107); CREATININE FOR GFR 0.72 MG/DL (0.55-1.30); GLOMERULAR FILTRATION RATE > 60.0 (>58); GLUCOSE, FASTING 79 MG/DL (70-100); POTASSIUM SERUM 4.2 MEQ/L (3.5-5.1); SODIUM LEVEL 140 MEQ/L (136-145); TOTAL PROTEIN 7.3 GM/DL (6.4-8.2)
[2021-12-16 12:56] LABS: ERYTHROCYTE SEDIMENTATION RATE 30 mm/hr (0-20)
[2021-12-16 13:51] LABS: ATYPICAL LYMPH 3 % (0-5); EOSINOPHILS 2 % (0-3); LYMPHOCYTES 25 % (16-44); MONOCYTES 8 % (0-5); NEUTROPHILS 62 % (28-66); PLATELET ESTIMATE NORMAL (NORMAL)
== END ==
LOC: M LAB 09:40
PROVIDERS: ATTEND Internal Medicine Rheumatology
DX: L40.50 Arthropathic psoriasis, unspecified (principal); R76.0 Raised antibody titer; R79.89 Other specified abnormal findings of blood chemistry; Z79.899 Other long term (current) drug therapy

== ENCOUNTER → 2022-05-24 | Outpatient (CLI) | payer OTHER ==
[~2022-05-24] MED LIST changes: +E-Z-GAS II EFFERVESCENT PACKET (SODIUM BICARB./CITRIC ACID/SIMETHICONE) As Ordered ONE; +E-Z-HD 98% w/w 340GM SUSP BTL As Ordered ONE; +E-Z-PAQUE 96% w/w SUSP 176GM BTL As Ordered ONE
== END ==
LOC: M RAD 08:51
PROVIDERS: ATTEND Internal Medicine Gastroenterology
DX: R10.13 Epigastric pain (principal)

== ENCOUNTER → 2022-10-18 | Outpatient (REF) | payer OTHER ==
[~2022-10-18] MED LIST changes: -E-Z-GAS II EFFERVESCENT PACKET (SODIUM BICARB./CITRIC ACID/SIMETHICONE) As Ordered ONE; -E-Z-HD 98% w/w 340GM SUSP BTL As Ordered ONE; -E-Z-PAQUE 96% w/w SUSP 176GM BTL As Ordered ONE
[2022-10-18 14:23] LABS: HEPATITIS B SURFACE ANTIGEN NEGATIVE (NEGATIVE)
[2022-10-18 14:45] LABS: HEPATITIS B CORE ANTIBODY IGM NEGATIVE (NEGATIVE); HEPATITIS C VIRUS ABY INDEX 0.1 INDEX (<0.8)
== END ==
LOC: M SFHCRHEU 10:21
PROVIDERS: ATTEND Internal Medicine Rheumatology
DX: L40.50 Arthropathic psoriasis, unspecified (principal); R76.0 Raised antibody titer; Z79.899 Other long term (current) drug therapy; R79.89 Other specified abnormal findings of blood chemistry

== ENCOUNTER → 2023-05-18 | Outpatient (CLI) | payer OTHER ==
[~2023-05-18] MED LIST changes: +CELE0.09; -CELE1CAP9; +LORA-1041 PO; -LORA-674 PO
[2023-05-18 13:16] LABS: BASO % 0.5 % (0.0-1.0); EOS # 0.1 10^3/uL (0.0-0.5); EOS % 1.1 % (0.0-3.0); HEMATOCRIT 41.3 % (36.0-47.0); HEMOGLOBIN 13.6 g/dl (12.0-15.5); LYMPH # 1.5 10^3/uL (1.5-5.0); MEAN CORPUSCULAR HGB CONC 32.9 g/dl (32.0-36.5); MEAN CORPUSCULAR VOLUME 106.2 fl (80.0-96.0); MONO # 0.7 10^3/uL (0.0-0.8); MONO % 10.3 % (2.0-8.0); NEUTROPHILS # 4.1 10^3/uL (1.5-8.5); NEUTROPHILS % 64.6 % (36.0-66.0); PLATELET COUNT, AUTOMATED 172 10^3/uL (150-450); RED BLOOD COUNT 3.89 10^6/uL (4.00-5.40); WHITE BLOOD COUNT 6.4 10^3/uL (4.0-10.0)
[2023-05-18 13:28] LABS: ERYTHROCYTE SEDIMENTATION RATE 48 mm/hr (0-20)
[2023-05-18 13:42] LABS: C REACTIVE PROTEIN QUANTITATIV < 0.40 MG/DL (<1.0)
[2023-05-18 13:43] LABS: ALBUMIN 3.4 G/DL (3.2-5.2); ALKALINE PHOSPHATASE 107 U/L (46-116); ALT/SGPT 16 U/L (7.0-40); AST/SGOT 11 U/L (<34); BILIRUBIN,TOTAL 0.2 MG/DL (0.3-1.2); BLOOD UREA NITROGEN 7 MG/DL (9-23); CALCIUM LEVEL 8.9 MG/DL (8.5-10.1); CARBON DIOXIDE LEVEL 31 MMOL/L (20-31); CHLORIDE LEVEL 108 MMOL/L (98-107); CREATININE FOR GFR 0.64 MG/DL (0.55-1.30); GLOMERULAR FILTRATION RATE > 60.0 (>58); GLUCOSE, FASTING 100 MG/DL (60-100); POTASSIUM SERUM 4.1 MMOL/L (3.5-5.1); SODIUM LEVEL 142 MMOL/L (136-145); TOTAL PROTEIN 6.8 G/DL (5.7-8.2)
== END ==
LOC: M LAB 12:49
PROVIDERS: ATTEND Internal Medicine Rheumatology
DX: L40.50 Arthropathic psoriasis, unspecified (principal); R76.0 Raised antibody titer; Z79.899 Other long term (current) drug therapy; R79.89 Other specified abnormal findings of blood chemistry